=== PATIENT | female | born 1940 | race Caucasian/White ===

== ENCOUNTER 2017-09-22 15:39 | Inpatient (IN) | payer MEDICARE, OTHER ==
[2017-09-22] MEDS: SOD CHLORIDE 0.9% 1,000 ML IV (18:25)
[2017-09-22] MEDS ORDERED: GLUCOSE GEL 15 GRAM TUBE PO ×2 (18:30)
[2017-09-22] MEDS ORDERED: DEXTROSE 50% 50 ML SYRINGE IV (18:30)
[2017-09-22] MEDS ORDERED: GLUCAGON 1 MG INJ IM (18:30)
[2017-09-22] MEDS ORDERED: GLUCOSE GEL 15 GRAM TUBE BUCCAL (18:30)
[2017-09-22] MEDS: ACETAMINOPHEN 500 MG TAB PO (18:39)
[2017-09-22] MEDS: CEFAZOLIN 1 GM/50 ML (PMX) 50 ML IVPB ×2 (18:39→21:23)
[2017-09-22] MEDS: INSULIN ASPART [NOVOLOG] 3 ML PEN SC ×2 (18:45→21:00)
[2017-09-22] MEDS: METOPROLOL 50 MG TAB PO (21:00)
[2017-09-22] MEDS: ATORVASTATIN 40 MG TAB PO (21:23)
[2017-09-22] MEDS: TIMOLOL 0.25% 5 ML OPH BOTH EYES (21:23)
[2017-09-22] MEDS: IBUPROFEN 600 MG TAB PO (21:23)
[2017-09-22] MEDS ORDERED: IBUPROFEN LIQUID (PED) 20 MG/ML CUP PO (22:00)
[2017-09-23] MEDS: ACCU-CHEK XX (01:04)
[2017-09-23] MEDS: CEFAZOLIN 1 GM/50 ML (PMX) 50 ML IVPB ×3 (05:11→21:45)
[2017-09-23] MEDS: IBUPROFEN 600 MG TAB PO ×3 (05:12→21:46)
[2017-09-23 05:49] LABS: ADD MAN DIFF? NO
[2017-09-23 05:56] LABS: BASOPHILS % 0.6 % (0.0-2.0); HEMATOCRIT 31.1 % (37.0-47.0); HEMOGLOBIN 10.5 g/dl (12.0-16.0); LYMPHOCYTES # 2.6 10^3/ul (0.8-2.9); LYMPHOCYTES % 35.5 % (15.0-51.0); MEAN CORPUSCULAR HEMOGLOBIN 26.6 pg (29.0-33.0); MEAN CORPUSCULAR HGB CONC 33.8 g/dl (32.0-37.0); MEAN CORPUSCULAR VOLUME 78.9 fl (82.0-101.0); MEAN PLATELET VOLUME 9.8 fl (7.4-10.4); MONOCYTE # 0.6 10^3/ul (0.3-0.9); MONOCYTES % 7.7 % (0.0-11.0); NEUTROPHIL # 4.1 10^3/ul (1.6-7.5); NEUTROPHILS % 55.9 % (39.0-77.0); PLATELET COUNT 379 10^3/UL (140-415); RED BLOOD COUNT 3.94 10^6/ul (4.20-5.40); RED CELL DISTRIBUTION WIDTH 16.9 % (11.5-14.5)
[2017-09-23 05:56] LABS: WHITE BLOOD COUNT 7.3 10^3/ul (4.8-10.8)
[2017-09-23 06:21] LABS: PHOSPHORUS 3.8 mg/dl (2.5-4.9)
[2017-09-23 06:21] LABS: MAGNESIUM 1.6 mg/dl (1.7-2.5)
[2017-09-23 06:33] LABS: ANION GAP 15 (8-16); BLOOD UREA NITROGEN 8 mg/dl (7-20); CALCIUM 8.9 mg/dl (8.4-10.2); CARBON DIOXIDE 27 mmol/L (21-31); CHLORIDE 103 mmol/L (97-110); CREATININE 0.67 mg/dl (0.44-1.00); GLUCOSE 178 mg/dl (70-220); POTASSIUM 3.6 mmol/L (3.5-5.1); SODIUM 141 mmol/L (135-144)
[2017-09-23 06:39] LABS: C-REACTIVE PROTEIN < 0.5 mg/dl (0.0-0.9)
[2017-09-23 06:46] LABS: HEMOGLOBIN A1C 7.5 % (0-5.9)
[2017-09-23 06:59] LABS: ERYTHROCYTE SEDIMENTATION RATE 30 mm/Hr (0-30)
[2017-09-23] MEDS: TIMOLOL 0.25% 5 ML OPH BOTH EYES ×2 (08:12→21:44)
[2017-09-23] MEDS: BENAZEPRIL 40 MG TAB PO (08:13)
[2017-09-23] MEDS: AMLODIPINE 10 MG TAB PO (08:14)
[2017-09-23] MEDS: METOPROLOL 50 MG TAB PO ×2 (08:14→21:45)
[2017-09-23] MEDS: HYDROCHLOROTHIAZIDE 12.5 MG CAP PO (08:14)
[2017-09-23] MEDS: SOD CHLORIDE 0.9% 1,000 ML IV ×2 (08:14→21:46)
[2017-09-23] MEDS: INSULIN ASPART [NOVOLOG] 3 ML PEN SC ×4 (08:18→21:50)
[2017-09-23] MEDS: MAGNESIUM SULFATE 2 GM/50 ML 50 ML IVPB (12:34)
[2017-09-23] MEDS: ATORVASTATIN 40 MG TAB PO (21:44)
[2017-09-23] MEDS: ZOLPIDEM 5 MG TAB PO (21:45)
[2017-09-23] MEDS: INSULIN ASP PROT/ASPART (70/30) PEN SC (21:49)
[2017-09-24] MEDS: ACCU-CHEK XX (01:20)
[2017-09-24] MEDS: ACETAMINOPHEN 500 MG TAB PO (01:23)
[2017-09-24] MEDS: CEFAZOLIN 1 GM/50 ML (PMX) 50 ML IVPB (05:03)
[2017-09-24] MEDS: IBUPROFEN 600 MG TAB PO ×3 (05:03→21:11)
[2017-09-24] MEDS: AMLODIPINE 10 MG TAB PO (08:29)
[2017-09-24] MEDS: METOPROLOL 50 MG TAB PO ×2 (08:30→21:12)
[2017-09-24] MEDS: BENAZEPRIL 40 MG TAB PO (08:30)
[2017-09-24] MEDS: TIMOLOL 0.25% 5 ML OPH BOTH EYES ×2 (08:31→21:12)
[2017-09-24] MEDS: HYDROCHLOROTHIAZIDE 12.5 MG CAP PO (08:31)
[2017-09-24] MEDS: INSULIN ASP PROT/ASPART (70/30) PEN SC ×2 (08:33→21:16)
[2017-09-24] MEDS: INSULIN ASPART [NOVOLOG] 3 ML PEN SC ×4 (08:34→21:16)
[2017-09-24] MEDS: SOD CHLORIDE 0.9% 1,000 ML IV ×2 (12:24→23:59)
[2017-09-24] MEDS ORDERED: VANCOMYCIN IV PER PHARMACY XX (14:00)
[2017-09-24] MEDS: VANCOMYCIN 1.25 GM in SOD CHLORIDE 0.9% 250 ML IVPB (15:36)
[2017-09-24] MEDS: ATORVASTATIN 40 MG TAB PO (21:11)
[2017-09-25] MEDS: ACCU-CHEK XX (01:47)
[2017-09-25] MEDS: ACETAMINOPHEN 500 MG TAB PO ×2 (01:50→08:25)
[2017-09-25] MEDS: VANCOMYCIN 750 MG in DEXTROSE 5% 150 ML IVPB ×2 (03:50→15:48)
[2017-09-25] MEDS: IBUPROFEN 600 MG TAB PO ×3 (06:05→21:48)
[2017-09-25 06:28] LABS: ADD MAN DIFF? NO
[2017-09-25 06:37] LABS: WHITE BLOOD COUNT 8.6 10^3/ul (4.8-10.8)
[2017-09-25 06:37] LABS: BASOPHIL # 0.1 10^3/ul (0.0-0.1); BASOPHILS % 0.6 % (0.0-2.0); HEMATOCRIT 31.2 % (37.0-47.0); HEMOGLOBIN 10.3 g/dl (12.0-16.0); LYMPHOCYTES % 34.5 % (15.0-51.0); MEAN CORPUSCULAR HEMOGLOBIN 26.3 pg (29.0-33.0); MEAN CORPUSCULAR VOLUME 79.6 fl (82.0-101.0); MEAN PLATELET VOLUME 9.8 fl (7.4-10.4); MONOCYTE # 0.7 10^3/ul (0.3-0.9); MONOCYTES % 8.5 % (0.0-11.0); NEUTROPHIL # 4.8 10^3/ul (1.6-7.5); NEUTROPHILS % 56.2 % (39.0-77.0); PLATELET COUNT 363 10^3/UL (140-415); RED BLOOD COUNT 3.92 10^6/ul (4.20-5.40); RED CELL DISTRIBUTION WIDTH 16.9 % (11.5-14.5)
[2017-09-25 07:33] LABS: BLOOD UREA NITROGEN 14 mg/dl (7-20)
[2017-09-25] MEDS: TIMOLOL 0.25% 5 ML OPH BOTH EYES ×2 (08:25→20:38)
[2017-09-25] MEDS: AMLODIPINE 10 MG TAB PO (08:26)
[2017-09-25] MEDS: BENAZEPRIL 40 MG TAB PO (08:26)
[2017-09-25] MEDS: HYDROCHLOROTHIAZIDE 12.5 MG CAP PO (08:26)
[2017-09-25] MEDS: METOPROLOL 50 MG TAB PO ×2 (08:27→20:40)
[2017-09-25] MEDS: INSULIN ASP PROT/ASPART (70/30) PEN SC ×2 (08:32→20:43)
[2017-09-25] MEDS: INSULIN ASPART [NOVOLOG] 3 ML PEN SC ×4 (08:33→20:45)
[2017-09-25] MEDS ORDERED: MIDAZOLAM 1 MG/ML 2 ML INJ (13:24)
[2017-09-25] MEDS ORDERED: LIDOCAINE 1% (MDV) 20 ML INJ (13:24)
[2017-09-25] MEDS ORDERED: FENTAnyl 50 MCG/ML VIAL (13:24)
[2017-09-25] MEDS: LACTATED RINGER'S 1,000 ML IV ×3 (15:00→18:42)
[2017-09-25] MEDS: CLOPIDOGREL 75 MG TAB PO (15:47)
[2017-09-25] MEDS: HYDROCODONE/APAP (5/325) TAB PO (15:48)
[2017-09-25] MEDS: SOD CHLORIDE 0.9% 1,000 ML IV ×2 (17:29→21:55)
[2017-09-25] MEDS: ATORVASTATIN 40 MG TAB PO (20:40)
[2017-09-25] MEDS: ZOLPIDEM 5 MG TAB PO (23:47)
[2017-09-26] MEDS: ACCU-CHEK XX (01:40)
[2017-09-26] MEDS: DEXTROSE 50% 50 ML SYRINGE IV (01:50)
[2017-09-26 02:21] LABS: GLUCOSE 39 mg/dl (70-220)
[2017-09-26 02:27] LABS: VANCOMYCIN,TROUGH 11.8 ug/ml (10.0-20.0)
[2017-09-26] MEDS: VANCOMYCIN 750 MG in DEXTROSE 5% 150 ML IVPB ×2 (03:21→14:30)
[2017-09-26] MEDS: IBUPROFEN 600 MG TAB PO ×2 (05:43→14:25)
[2017-09-26 06:16] LABS: ADD MAN DIFF? NO
[2017-09-26 06:34] LABS: WHITE BLOOD COUNT 9.9 10^3/ul (4.8-10.8)
[2017-09-26 06:34] LABS: BASOPHILS % 0.3 % (0.0-2.0); HEMATOCRIT 32.7 % (37.0-47.0); HEMOGLOBIN 10.7 g/dl (12.0-16.0); LYMPHOCYTES # 1.6 10^3/ul (0.8-2.9); LYMPHOCYTES % 16.3 % (15.0-51.0); MEAN CORPUSCULAR HEMOGLOBIN 26.6 pg (29.0-33.0); MEAN CORPUSCULAR HGB CONC 32.7 g/dl (32.0-37.0); MEAN CORPUSCULAR VOLUME 81.3 fl (82.0-101.0); MEAN PLATELET VOLUME 9.5 fl (7.4-10.4); MONOCYTE # 0.6 10^3/ul (0.3-0.9); MONOCYTES % 5.7 % (0.0-11.0); NEUTROPHIL # 7.7 10^3/ul (1.6-7.5); NEUTROPHILS % 77.4 % (39.0-77.0); PLATELET COUNT 371 10^3/UL (140-415); RED BLOOD COUNT 4.02 10^6/ul (4.20-5.40); RED CELL DISTRIBUTION WIDTH 16.9 % (11.5-14.5)
[2017-09-26 06:46] LABS: ANION GAP 11 (8-16); BLOOD UREA NITROGEN 12 mg/dl (7-20); CALCIUM 9.2 mg/dl (8.4-10.2); CARBON DIOXIDE 29 mmol/L (21-31); CHLORIDE 106 mmol/L (97-110); CREATININE 0.65 mg/dl (0.44-1.00); GLUCOSE 111 mg/dl (70-220); POTASSIUM 3.3 mmol/L (3.5-5.1); SODIUM 143 mmol/L (135-144)
[2017-09-26] MEDS: SOD CHLORIDE 0.9% 1,000 ML IV ×2 (07:18→12:06)
[2017-09-26] MEDS: TIMOLOL 0.25% 5 ML OPH BOTH EYES (08:05)
[2017-09-26] MEDS: BENAZEPRIL 40 MG TAB PO (08:06)
[2017-09-26] MEDS: AMLODIPINE 10 MG TAB PO (08:06)
[2017-09-26] MEDS: HYDROCHLOROTHIAZIDE 12.5 MG CAP PO (08:07)
[2017-09-26] MEDS: METOPROLOL 50 MG TAB PO (08:07)
[2017-09-26] MEDS: CLOPIDOGREL 75 MG TAB PO (08:07)
[2017-09-26] MEDS: INSULIN ASPART [NOVOLOG] 3 ML PEN SC ×2 (08:07→12:07)
[2017-09-26] MEDS: INSULIN ASP PROT/ASPART (70/30) PEN SC (08:10)
[2017-09-26] MEDS: POTASSIUM CHLORIDE (SR) 10 MEQ TAB PO (16:14)
== END 2017-09-26 17:05 | disposition home or self-care (01) | DRG 253 ==
LOC: MS2 15:39
PROVIDERS: Internal Medicine Nephrology
PROC: 047L3ZZ Dilation of Left Femoral Artery, Percutaneous Approach (ICD-10-PCS; principal; 2017-09-25 13:30)
PROC: B41DYZZ Fluoroscopy of Aorta and Bilateral Lower Extremity Arteries using Other Contrast (ICD-10-PCS; 2017-09-25 13:30)
DX: E11.52 Type 2 diabetes mellitus with diabetic peripheral angiopathy with gangrene (principal); L03.116 Cellulitis of left lower limb; I70.262 Atherosclerosis of native arteries of extremities with gangrene, left leg; L97.229 Non-pressure chronic ulcer of left calf with unspecified severity; E11.42 Type 2 diabetes mellitus with diabetic polyneuropathy; I10 Essential (primary) hypertension; E78.5 Hyperlipidemia, unspecified; H40.9 Unspecified glaucoma; Z79.4 Long term (current) use of insulin; Z79.84 Long term (current) use of oral hypoglycemic drugs; Z79.02 Long term (current) use of antithrombotics/antiplatelets
CPT/HCPCS: 37224; 73721; 75710; 80048; 80202; 82565; 82947; 82962; 83036; 83735; 84100; 84520; 85025; 85651; 86140; 87081; 93922

== ENCOUNTER 2018-02-01 03:07 | Inpatient (IN) | payer MEDICARE, OTHER ==
[2018-02-01] MEDS: ONDANSETRON 4 MG INJ IV ×4 (04:07→17:40)
[2018-02-01 04:08] LABS: ADD MAN DIFF? NO
[2018-02-01] MEDS: SOD CHLORIDE 0.9% 500 ML IV (04:08)
[2018-02-01 04:09] LABS: WHITE BLOOD COUNT 11.1 10^3/ul (4.8-10.8)
[2018-02-01 04:09] LABS: BASOPHIL # 0.1 10^3/ul (0.0-0.1); BASOPHILS % 0.5 % (0.0-2.0); HEMATOCRIT 32.5 % (37.0-47.0); HEMOGLOBIN 10.6 g/dl (12.0-16.0); LYMPHOCYTES # 1.7 10^3/ul (0.8-2.9); LYMPHOCYTES % 15.7 % (15.0-51.0); MEAN CORPUSCULAR HEMOGLOBIN 26.4 pg (29.0-33.0); MEAN CORPUSCULAR HGB CONC 32.6 g/dl (32.0-37.0); MEAN CORPUSCULAR VOLUME 80.8 fl (82.0-101.0); MEAN PLATELET VOLUME 9.5 fl (7.4-10.4); MONOCYTE # 0.6 10^3/ul (0.3-0.9); MONOCYTES % 5.3 % (0.0-11.0); NEUTROPHIL # 8.7 10^3/ul (1.6-7.5); NEUTROPHILS % 78.2 % (39.0-77.0); PLATELET COUNT 367 10^3/UL (140-415); RED BLOOD COUNT 4.02 10^6/ul (4.20-5.40); RED CELL DISTRIBUTION WIDTH 15.9 % (11.5-14.5)
[2018-02-01 04:28] LABS: ALANINE AMINOTRANSFERASE 12 IU/L (13-69); ALBUMIN 4.4 g/dl (3.3-4.9); ALBUMIN/GLOBULIN RATIO 1.46; ALKALINE PHOSPHATASE 102 IU/L (42-121); ANION GAP 20 (8-16); ASPARTATE AMINO TRANSFERASE 23 IU/L (15-46); BILIRUBIN,INDIRECT 0.3 mg/dl (0-1.1); BILIRUBIN,TOTAL 0.3 mg/dl (0.2-1.3); BLOOD UREA NITROGEN 21 mg/dl (7-20); CARBON DIOXIDE 24 mmol/L (21-31); CHLORIDE 100 mmol/L (97-110); CREATININE 0.96 mg/dl (0.44-1.00); GLUCOSE 349 mg/dl (70-220); POTASSIUM 3.8 mmol/L (3.5-5.1); SODIUM 140 mmol/L (135-144); TOTAL PROTEIN 7.4 g/dl (6.1-8.1)
[2018-02-01 04:39] LABS: B-TYPE NATRIURETIC PEPTIDE 237 PG/ML (0-450); TROPONIN-I < 0.012 ng/ml (0.000-0.120)
[2018-02-01 08:03] LABS: ADD UMIC YES; UR ASCORBIC ACID NEGATIVE (NEGATIVE); UR BACTERIA FEW /HPF (NONE SEEN); UR BILIRUBIN (Dip) NEGATIVE (NEGATIVE); UR BLOOD (Dip) NEGATIVE (NEGATIVE); UR CLARITY SLIGHTLY CLOUDY (CLEAR); UR COLOR YELLOW (YELLOW); UR GLUCOSE (Dip) 3+ mg/dL (NEGATIVE); UR KETONES (Dip) 1+ mg/dL (NEGATIVE); UR LEUKOCYTE ESTERASE (Dip) TRACE Leu/ul (NEGATIVE); UR NITRITE (Dip) NEGATIVE (NEGATIVE); UR NONSQUAMOUS EPITHELIAL CELL 1 /HPF (NONE SEEN); UR RBC 3 /HPF (0-5); UR SPECIFIC GRAVITY (Dip) 1.018 (1.003-1.030); UR TOTAL PROTEIN (Dip) NEGATIVE (NEGATIVE); UR UROBILINOGEN (Dip) NEGATIVE (NEGATIVE); UR WBC 12 /HPF (0-5)
[2018-02-01] MEDS: DEXTROSE 5%-0.45% NACL 1,000 ML IV (09:19)
[2018-02-01] MEDS ORDERED: GLUCAGON 1 MG INJ IM (09:30)
[2018-02-01] MEDS ORDERED: GLUCOSE GEL 15 GRAM TUBE BUCCAL (09:30)
[2018-02-01] MEDS ORDERED: DEXTROSE 50% 50 ML SYRINGE IV ×2 (09:30)
[2018-02-01] MEDS ORDERED: GLUCOSE GEL 15 GRAM TUBE PO ×2 (09:30)
[2018-02-01] MEDS: INSULIN ASPART [NOVOLOG] 3 ML PEN SC ×4 (09:44→19:38)
[2018-02-01 10:14] LABS: LIPASE 92 U/L (23-300)
[2018-02-01] MEDS ORDERED: [UNRECOGNIZED DRUG - REMARK] XX (11:30)
[2018-02-01] MEDS ORDERED: FUROSEMIDE 40 MG INJ (18:24)
[2018-02-01] MEDS: FUROSEMIDE 40 MG INJ IV ×2 (18:26→18:29)
[2018-02-01 18:27] LABS: AADO2 Arterial 632.5 mmHg (7.0-24.0); Allen Test ACCEPTAB; Arterial Base Excess -4.4 mmol/L (-3.0-3); Arterial Blood Gas Oxygen Sat 85.5 mmHG (95.0-100.0); Arterial COHb 0.8 % (0.0-3.0); Arterial Fraction of Oxyhgb 84.6 % (93.0-99.0); Arterial HCO3 18.8 mmol/L (22.0-26.0); Arterial MetHb 0.3 % (0.0-1.5); Arterial Total Hemglobin 11.3 g/dl (12.0-18.0); Arterial pCO2 28.7 mmhg (35-45); MODE MASK - NRB; Site Right Radial
[2018-02-01] MEDS: ALBUTEROL/IPRATROPIUM (NEB) 3 ML AMP HHN (18:27)
[2018-02-01 19:01] LABS: ADD MAN DIFF? NO
[2018-02-01 19:03] LABS: BASOPHILS % 0.2 % (0.0-2.0); HEMATOCRIT 33.8 % (37.0-47.0); HEMOGLOBIN 10.8 g/dl (12.0-16.0); LYMPHOCYTES # 1.2 10^3/ul (0.8-2.9); LYMPHOCYTES % 8.2 % (15.0-51.0); MEAN CORPUSCULAR HEMOGLOBIN 26.5 pg (29.0-33.0); MEAN PLATELET VOLUME 9.9 fl (7.4-10.4); MONOCYTE # 0.7 10^3/ul (0.3-0.9); MONOCYTES % 4.9 % (0.0-11.0); NEUTROPHIL # 12.6 10^3/ul (1.6-7.5); NEUTROPHILS % 86.2 % (39.0-77.0); PLATELET COUNT 393 10^3/UL (140-415); RED BLOOD COUNT 4.07 10^6/ul (4.20-5.40)
[2018-02-01 19:03] LABS: WHITE BLOOD COUNT 14.6 10^3/ul (4.8-10.8)
[2018-02-01 19:39] LABS: LACTIC ACID 5.9 mmol/L (0.5-2.0)
[2018-02-01 19:49] LABS: ALANINE AMINOTRANSFERASE 20 IU/L (13-69); ALBUMIN 3.9 g/dl (3.3-4.9); ALBUMIN/GLOBULIN RATIO 1.25; ALKALINE PHOSPHATASE 86 IU/L (42-121); ANION GAP 21 (8-16); ASPARTATE AMINO TRANSFERASE 119 IU/L (15-46); BILIRUBIN,INDIRECT 0.3 mg/dl (0-1.1); BILIRUBIN,TOTAL 0.3 mg/dl (0.2-1.3); BLOOD UREA NITROGEN 23 mg/dl (7-20); CALCIUM 9.5 mg/dl (8.4-10.2); CARBON DIOXIDE 22 mmol/L (21-31); CHLORIDE 101 mmol/L (97-110); GLUCOSE 388 mg/dl (70-220); POTASSIUM 3.5 mmol/L (3.5-5.1); SODIUM 140 mmol/L (135-144)
[2018-02-01 20:01] LABS: B-TYPE NATRIURETIC PEPTIDE 7350 PG/ML (0-450)
[2018-02-01] MEDS: ALBUTEROL 0.083% (NEB) 2.5 MG/3 ML AMP HHN (20:30)
[2018-02-01] MEDS: IPRATROPIUM (NEB) 0.5 MG/2.5 ML AMP HHN (20:30)
[2018-02-01] MEDS: SOD CHLORIDE 0.45% 1,000 ML IV (20:47)
[2018-02-01] MEDS: LEVOFLOXACIN 500MG/D5W (PMX) 100 ML IVPB (20:47)
[2018-02-01] MEDS: ENOXAPARIN 40 MG/0.4 ML SYG SC ×2 (20:49→23:30)
[2018-02-01] MEDS: METOCLOPRAMIDE 5 MG TAB PO (21:00)
[2018-02-01] MEDS ORDERED: ALBUTEROL/IPRATROPIUM (NEB) 3 ML AMP HHN (21:00)
[2018-02-01] MEDS ORDERED: NITROGLYCERIN (SL) 0.4 MG TAB (21:51)
[2018-02-01] MEDS: NITROGLYCERIN (SL) 0.4 MG TAB SL ×3 (21:53→22:37)
[2018-02-01] MEDS ORDERED: FUROSEMIDE 40 MG INJ IV (22:00)
[2018-02-01] MEDS ORDERED: morphine 2 MG INJ (22:18)
[2018-02-01] MEDS ORDERED: morphine 2 MG INJ IV (22:30)
[2018-02-01] MEDS: morphine 2 MG INJ IV (23:26)
[2018-02-01 23:35] LABS: AADO2 Arterial 633.5 mmHg (7.0-24.0); Allen Test ACCEPTAB; Arterial Base Excess -4.3 mmol/L (-3.0-3); Arterial Blood Gas Oxygen Sat 85.9 mmHG (95.0-100.0); Arterial COHb 0.3 % (0.0-3.0); Arterial Fraction of Oxyhgb 85.4 % (93.0-99.0); Arterial HCO3 18.5 mmol/L (22.0-26.0); Arterial MetHb 0.3 % (0.0-1.5); Arterial Total Hemglobin 10.7 g/dl (12.0-18.0); Arterial pCO2 27.3 mmhg (35-45); MODE HFNC; Site Right Radial
[2018-02-02] MEDS: ASPIRIN 81 MG TAB PO ×2 (00:28→09:10)
[2018-02-02] MEDS: ALBUTEROL 0.083% (NEB) 2.5 MG/3 ML AMP HHN (02:36)
[2018-02-02] MEDS: IPRATROPIUM (NEB) 0.5 MG/2.5 ML AMP HHN (02:36)
[2018-02-02] MEDS: ACCU-CHEK XX ×16 (02:37→23:17)
[2018-02-02 05:26] LABS: ADD MAN DIFF? NO
[2018-02-02 05:34] LABS: BASOPHILS % 0.1 % (0.0-2.0); HEMATOCRIT 34.2 % (37.0-47.0); HEMOGLOBIN 11.2 g/dl (12.0-16.0); LYMPHOCYTES # 1.1 10^3/ul (0.8-2.9); LYMPHOCYTES % 6.9 % (15.0-51.0); MEAN CORPUSCULAR HEMOGLOBIN 26.6 pg (29.0-33.0); MEAN CORPUSCULAR HGB CONC 32.7 g/dl (32.0-37.0); MEAN CORPUSCULAR VOLUME 81.2 fl (82.0-101.0); MEAN PLATELET VOLUME 10.1 fl (7.4-10.4); MONOCYTES % 6.2 % (0.0-11.0); NEUTROPHIL # 13.9 10^3/ul (1.6-7.5); NEUTROPHILS % 86.4 % (39.0-77.0); PLATELET COUNT 434 10^3/UL (140-415); RED BLOOD COUNT 4.21 10^6/ul (4.20-5.40); RED CELL DISTRIBUTION WIDTH 16.1 % (11.5-14.5)
[2018-02-02 05:34] LABS: WHITE BLOOD COUNT 16.2 10^3/ul (4.8-10.8)
[2018-02-02] MEDS: PANTOPRAZOLE 40 MG INJ IV (05:47)
[2018-02-02 05:48] LABS: ALANINE AMINOTRANSFERASE 35 IU/L (13-69); ALBUMIN 3.7 g/dl (3.3-4.9); ALBUMIN/GLOBULIN RATIO 1.42; ALKALINE PHOSPHATASE 86 IU/L (42-121); ANION GAP 19 (8-16); ASPARTATE AMINO TRANSFERASE 240 IU/L (15-46); BILIRUBIN,INDIRECT 0.4 mg/dl (0-1.1); BILIRUBIN,TOTAL 0.4 mg/dl (0.2-1.3); BLOOD UREA NITROGEN 28 mg/dl (7-20); CALCIUM 9.1 mg/dl (8.4-10.2); CARBON DIOXIDE 22 mmol/L (21-31); CHLORIDE 101 mmol/L (97-110); CREATINE KINASE 1546 IU/L (23-200); CREATININE 1.07 mg/dl (0.44-1.00); POTASSIUM 3.5 mmol/L (3.5-5.1); SODIUM 138 mmol/L (135-144); TOTAL PROTEIN 6.3 g/dl (6.1-8.1)
[2018-02-02 05:54] LABS: CK INDEX 11.1
[2018-02-02 06:22] LABS: GLUCOSE 443 mg/dl (70-220)
[2018-02-02 06:24] LABS: LACTIC ACID 3.1 mmol/L (0.5-2.0)
[2018-02-02] MEDS ORDERED: DEXTROSE 50% 50 ML SYRINGE IV ×2 (07:00)
[2018-02-02 07:05] LABS: LIPASE 56 U/L (23-300)
[2018-02-02 07:08] LABS: AMYLASE < 30 U/L (11-123)
[2018-02-02] MEDS ORDERED: INSULIN ASPART [NOVOLOG] 3 ML PEN SC (07:35)
[2018-02-02 07:37] LABS: CARCINOEMBRYONIC ANTIGEN 1.9 ng/ml (0.0-5.0)
[2018-02-02 07:41] LABS: CANCER ANTIGEN 19-9 19.7 U/ml (0.0-37.0)
[2018-02-02] MEDS ORDERED: ASPIRIN 81 MG TAB PO (09:00)
[2018-02-02] MEDS: METHYLPREDNISOLONE 125 MG INJ IV ×3 (09:09→17:06)
[2018-02-02] MEDS: FUROSEMIDE 40 MG INJ IV ×2 (09:09→14:45)
[2018-02-02] MEDS: METOCLOPRAMIDE 5 MG TAB PO ×3 (09:09→20:47)
[2018-02-02] MEDS: INSULIN HUMAN REGULAR 100 UNIT in SOD CHLORIDE 0.9% 99 ML IV ×2 (09:23→21:51)
[2018-02-02] MEDS ORDERED: HEPARIN 1000 UNITS/ML 10 ML INJ IV (11:30)
[2018-02-02 12:24] LABS: HEMATOCRIT 36.1 % (37.0-47.0); HEMOGLOBIN 11.9 g/dl (12.0-16.0); MEAN CORPUSCULAR HEMOGLOBIN 26.5 pg (29.0-33.0); MEAN CORPUSCULAR VOLUME 80.4 fl (82.0-101.0); MEAN PLATELET VOLUME 9.8 fl (7.4-10.4); PLATELET COUNT 415 10^3/UL (140-415); RED BLOOD COUNT 4.49 10^6/ul (4.20-5.40)
[2018-02-02 12:24] LABS: WHITE BLOOD COUNT 16.9 10^3/ul (4.8-10.8)
[2018-02-02 12:25] LABS: ADD MAN DIFF? YES
[2018-02-02 12:47] LABS: INR 1.03; PROTIME 13.6 Sec (11.9-14.9); PT RATIO 1.1
[2018-02-02 12:48] LABS: PARTIAL THROMBOPLASTIN TIME 26.9 Sec (25.0-35.0)
[2018-02-02 13:05] LABS: AADO2 Arterial 634.3 mmHg (7.0-24.0); Allen Test ACCEPTAB; Arterial Base Excess -2.6 mmol/L (-3.0-3); Arterial Blood Gas Oxygen Sat 84.1 mmHG (95.0-100.0); Arterial COHb 0.9 % (0.0-3.0); Arterial Fraction of Oxyhgb 83.1 % (93.0-99.0); Arterial HCO3 20.2 mmol/L (22.0-26.0); Arterial MetHb 0.3 % (0.0-1.5); Arterial Total Hemglobin 12.1 g/dl (12.0-18.0); Arterial pCO2 29.2 mmhg (35-45); MODE MASK - NRB; Site Right Radial
[2018-02-02] MEDS ORDERED: HEPARIN 25000 UNITS/250 ML 250 ML (13:25)
[2018-02-02] MEDS ORDERED: HEPARIN 1000 UNITS/ML 10 ML INJ (13:25)
[2018-02-02] MEDS: HEPARIN 1000 UNITS/ML 10 ML INJ IV (13:34)
[2018-02-02] MEDS: HEPARIN 25000 UNITS/250 ML 250 ML IV (13:38)
[2018-02-02 16:19] LABS: CREATINE KINASE 1297 IU/L (23-200)
[2018-02-02 16:32] LABS: CK INDEX 6.9
[2018-02-02] MEDS: LEVOFLOXACIN 500MG/D5W (PMX) 100 ML IVPB (18:10)
[2018-02-02 20:39] LABS: PARTIAL THROMBOPLASTIN TIME 111.1 Sec (25.0-35.0)
[2018-02-02] MEDS: ATORVASTATIN 20 MG TAB PO (20:47)
[2018-02-02] MEDS: COLLAGENASE 5 GM (UD JAR) TOP (20:48)
[2018-02-03] MEDS: ACCU-CHEK XX ×25 (00:35→23:58)
[2018-02-03] MEDS: METHYLPREDNISOLONE 125 MG INJ IV ×5 (00:53→23:39)
[2018-02-03 03:39] LABS: ADD MAN DIFF? NO
[2018-02-03 04:07] LABS: ABNORMAL IP MESSAGE 1; BASOPHILS % 0.1 % (0.0-2.0); HEMATOCRIT 31.5 % (37.0-47.0); HEMOGLOBIN 10.7 g/dl (12.0-16.0); LYMPHOCYTES # 1.1 10^3/ul (0.8-2.9); LYMPHOCYTES % 4.9 % (15.0-51.0); MEAN CORPUSCULAR HEMOGLOBIN 27.1 pg (29.0-33.0); MEAN CORPUSCULAR VOLUME 79.7 fl (82.0-101.0); MEAN PLATELET VOLUME 10.5 fl (7.4-10.4); MONOCYTES % 4.5 % (0.0-11.0); NEUTROPHIL # 20.3 10^3/ul (1.6-7.5); NEUTROPHILS % 89.7 % (39.0-77.0); PLATELET COUNT 360 10^3/UL (140-415); RED BLOOD COUNT 3.95 10^6/ul (4.20-5.40); RED CELL DISTRIBUTION WIDTH 16.3 % (11.5-14.5)
[2018-02-03 04:07] LABS: WHITE BLOOD COUNT 22.6 10^3/ul (4.8-10.8)
[2018-02-03 04:08] LABS: CREATINE KINASE 844 IU/L (23-200)
[2018-02-03 04:09] LABS: MAGNESIUM 1.5 mg/dl (1.7-2.5)
[2018-02-03 04:09] LABS: PHOSPHORUS 2.9 mg/dl (2.5-4.9)
[2018-02-03 04:12] LABS: PARTIAL THROMBOPLASTIN TIME 61.5 Sec (25.0-35.0)
[2018-02-03 04:16] LABS: ANION GAP 16 (8-16); BLOOD UREA NITROGEN 32 mg/dl (7-20); CALCIUM 8.8 mg/dl (8.4-10.2); CARBON DIOXIDE 26 mmol/L (21-31); CHLORIDE 104 mmol/L (97-110); CREATININE 0.97 mg/dl (0.44-1.00); GLUCOSE 133 mg/dl (70-220); SODIUM 143 mmol/L (135-144)
[2018-02-03 04:20] LABS: POSITIVE DIFF @See below
[2018-02-03 04:21] LABS: CK INDEX 3.6
[2018-02-03 04:22] LABS: POTASSIUM 2.9 mmol/L (3.5-5.1)
[2018-02-03] MEDS: POTASSIUM CHLORIDE 50 ML IVPB ×6 (05:41→14:54)
[2018-02-03] MEDS: PANTOPRAZOLE 40 MG INJ IV (05:41)
[2018-02-03] MEDS: MAGNESIUM SULFATE 4 GM/100 ML 100 ML IVPB (06:03)
[2018-02-03] MEDS ORDERED: SUCCINYLCHOLINE CHLORIDE 100 MG/5 ML SYG IV (07:00)
[2018-02-03] MEDS ORDERED: NORepinephrine 8MG/250 ML BAG (07:00)
[2018-02-03] MEDS ORDERED: ETOMIDATE 20 MG INJ (07:00)
[2018-02-03] MEDS: morphine 2 MG INJ IV ×2 (08:37→12:45)
[2018-02-03] MEDS: COLLAGENASE 5 GM (UD JAR) TOP (09:34)
[2018-02-03] MEDS: ASPIRIN 81 MG TAB PO (10:42)
[2018-02-03] MEDS: LISINOPRIL 5 MG TAB PO (10:43)
[2018-02-03] MEDS: FUROSEMIDE 40 MG INJ IV ×2 (10:43→20:35)
[2018-02-03] MEDS: METOCLOPRAMIDE 5 MG TAB PO ×3 (10:43→21:08)
[2018-02-03 10:54] LABS: MAGNESIUM 3.4 mg/dl (1.7-2.5)
[2018-02-03 10:58] LABS: POTASSIUM 2.7 mmol/L (3.5-5.1)
[2018-02-03 11:05] LABS: PARTIAL THROMBOPLASTIN TIME 53.7 Sec (25.0-35.0)
[2018-02-03] MEDS: LIDOCAINE 1% (MPF) 5 ML VIAL SC (11:10)
[2018-02-03] MEDS: DEXTROSE 5%-0.45% NACL 1,000 ML IV (12:05)
[2018-02-03] MEDS: SUCCINYLCHOLINE CHLORIDE 100 MG/5 ML SYG IV (12:33)
[2018-02-03] MEDS: ETOMIDATE 20 MG INJ IV (12:33)
[2018-02-03] MEDS ORDERED: MIDAZOLAM (DRIP) 50 mg/50 mL 50 ML IV (12:38)
[2018-02-03] MEDS: NORepinephrine 8MG/250 ML (PMX 250 ML IV ×2 (12:47→23:04)
[2018-02-03] MEDS ORDERED: GLUCAGON 1 MG INJ IM (13:30)
[2018-02-03] MEDS ORDERED: DEXTROSE 50% 50 ML SYRINGE IV ×2 (13:30)
[2018-02-03] MEDS ORDERED: GLUCOSE GEL 15 GRAM TUBE BUCCAL (13:30)
[2018-02-03] MEDS ORDERED: GLUCOSE GEL 15 GRAM TUBE PO ×2 (13:30)
[2018-02-03] MEDS: INSULIN GLARGINE [LANTus] (100 UNITS/ML) SYG SC ×2 (13:42→20:32)
[2018-02-03] MEDS: MIDAZOLAM (DRIP) 50 mg/50 mL 50 ML IV ×2 (13:50→19:43)
[2018-02-03 14:01] LABS: Allen Test ACCEPTAB; Arterial Base Excess -0.9 mmol/L (-3.0-3); Arterial Blood Gas Oxygen Sat 99.5 mmHG (95.0-100.0); Arterial COHb 0.3 % (0.0-3.0); Arterial Fraction of Oxyhgb 98.9 % (93.0-99.0); Arterial HCO3 20.8 mmol/L (22.0-26.0); Arterial MetHb 0.3 % (0.0-1.5); Arterial Total Hemglobin 11.5 g/dl (12.0-18.0); Arterial pCO2 26.3 mmhg (35-45); MODE VENT - AC; Site Right Radial
[2018-02-03] MEDS: FENTAnyl (DRIP) 1000 mcg/100mL 100 ML IV (14:16)
[2018-02-03] MEDS: D5W-0.45 NACL + KCL 20 MEQ 1,000 ML IV (14:52)
[2018-02-03 15:31] LABS: PARTIAL THROMBOPLASTIN TIME 21.3 Sec (25.0-35.0)
[2018-02-03 16:52] LABS: ANION GAP 12 (8-16); BLOOD UREA NITROGEN 32 mg/dl (7-20); CALCIUM 8.6 mg/dl (8.4-10.2); CARBON DIOXIDE 24 mmol/L (21-31); CHLORIDE 108 mmol/L (97-110); CREATININE 1.03 mg/dl (0.44-1.00); GLUCOSE 155 mg/dl (70-220); MAGNESIUM 2.7 mg/dl (1.7-2.5); POTASSIUM 3.7 mmol/L (3.5-5.1); SODIUM 140 mmol/L (135-144)
[2018-02-03] MEDS: Insulin NOVOLOG SS MILD Algorithm (NPO/TPN/ENTERAL FEEDS) SC ×2 (17:00→21:00)
[2018-02-03] MEDS ORDERED: INSULIN ASPART [NOVOLOG] 3 ML PEN SC ×2 (17:00→17:35)
[2018-02-03] MEDS ORDERED: niCARdipine 25 MG INJ (18:02)
[2018-02-03] MEDS ORDERED: LIDOCAINE 1% (MDV) 20 ML INJ (18:02)
[2018-02-03] MEDS ORDERED: IODIXANOL LOCM 100 ML BTL ×2 (18:02→19:17)
[2018-02-03] MEDS ORDERED: BIVALIRUDIN 250MG /NS 50 ML 50 ML IVPB (18:02)
[2018-02-03] MEDS ORDERED: IOHEXOL 350MG/ML 50 ML BTL (18:02)
[2018-02-03] MEDS ORDERED: TICAGRELOR 90 MG TABLET (19:18)
[2018-02-03] MEDS ORDERED: ASPIRIN 325 MG TAB (19:18)
[2018-02-03] MEDS: LEVOFLOXACIN 500MG/D5W (PMX) 100 ML IVPB (20:25)
[2018-02-03] MEDS: SOD CHLORIDE 0.9% 1,000 ML IV (20:34)
[2018-02-03] MEDS: ATORVASTATIN 20 MG TAB PO (21:08)
[2018-02-03] MEDS: TICAGRELOR 90 MG TABLET PO (21:09)
[2018-02-03] MEDS: INSULIN ASPART [NOVOLOG] 3 ML PEN SC (21:12)
[2018-02-04 00:13] LABS: ANION GAP 23 (8-16); BLOOD UREA NITROGEN 33 mg/dl (7-20); CARBON DIOXIDE 15 mmol/L (21-31); CHLORIDE 104 mmol/L (97-110); CREATININE 1.19 mg/dl (0.44-1.00); MAGNESIUM 2.3 mg/dl (1.7-2.5); POTASSIUM 3.2 mmol/L (3.5-5.1); SODIUM 139 mmol/L (135-144)
[2018-02-04 00:19] LABS: GLUCOSE 430 mg/dl (70-220)
[2018-02-04] MEDS: POTASSIUM CHLORIDE 50 ML IVPB ×5 (00:23→08:00)
[2018-02-04] MEDS: Insulin NOVOLOG SS MILD Algorithm (NPO/TPN/ENTERAL FEEDS) SC (01:00)
[2018-02-04] MEDS: ACCU-CHEK XX ×31 (01:00→23:00)
[2018-02-04] MEDS ORDERED: DEXTROSE 50% 50 ML SYRINGE IV ×2 (01:30)
[2018-02-04] MEDS: INSULIN HUMAN REGULAR 100 UNIT in SOD CHLORIDE 0.9% 99 ML IV ×3 (02:54→05:18)
[2018-02-04 05:28] LABS: ADD MAN DIFF? NO
[2018-02-04 05:32] LABS: ABNORMAL IP MESSAGE 1; BASOPHILS % 0.1 % (0.0-2.0); HEMATOCRIT 27.6 % (37.0-47.0); HEMOGLOBIN 9.2 g/dl (12.0-16.0); LYMPHOCYTES # 0.5 10^3/ul (0.8-2.9); LYMPHOCYTES % 3.4 % (15.0-51.0); MEAN CORPUSCULAR HEMOGLOBIN 26.9 pg (29.0-33.0); MEAN CORPUSCULAR HGB CONC 33.3 g/dl (32.0-37.0); MEAN CORPUSCULAR VOLUME 80.7 fl (82.0-101.0); MEAN PLATELET VOLUME 10.3 fl (7.4-10.4); MONOCYTE # 1.3 10^3/ul (0.3-0.9); MONOCYTES % 8.2 % (0.0-11.0); NEUTROPHIL # 13.8 10^3/ul (1.6-7.5); NEUTROPHILS % 87.6 % (39.0-77.0); NUCLEATED RED BLOOD CELLS% 0.1 /100WBC (0.0-0.0); PLATELET COUNT 341 10^3/UL (140-415); RED BLOOD COUNT 3.42 10^6/ul (4.20-5.40); RED CELL DISTRIBUTION WIDTH 16.9 % (11.5-14.5)
[2018-02-04 05:32] LABS: WHITE BLOOD COUNT 15.7 10^3/ul (4.8-10.8)
[2018-02-04 05:51] LABS: POSITIVE DIFF @See below
[2018-02-04] MEDS: PANTOPRAZOLE 40 MG INJ IV (05:56)
[2018-02-04] MEDS: METHYLPREDNISOLONE 125 MG INJ IV ×3 (05:57→22:13)
[2018-02-04 06:15] LABS: ANION GAP 15 (8-16); BLOOD UREA NITROGEN 31 mg/dl (7-20); CARBON DIOXIDE 21 mmol/L (21-31); CHLORIDE 109 mmol/L (97-110); CREATININE 1.08 mg/dl (0.44-1.00); GLUCOSE 319 mg/dl (70-220); MAGNESIUM 2.2 mg/dl (1.7-2.5); PHOSPHORUS 1.4 mg/dl (2.5-4.9); POTASSIUM 3.6 mmol/L (3.5-5.1); SODIUM 141 mmol/L (135-144)
[2018-02-04 06:17] LABS: CK INDEX 3.9; CREATINE KINASE 273 IU/L (23-200)
[2018-02-04 07:29] LABS: AADO2 Arterial 83.4 mmHg (7.0-24.0); Allen Test ACCEPTAB; Arterial Base Excess -0.8 mmol/L (-3.0-3); Arterial Blood Gas Oxygen Sat 97.6 mmHG (95.0-100.0); Arterial COHb 0 % (0.0-3.0); Arterial Fraction of Oxyhgb 97.3 % (93.0-99.0); Arterial HCO3 20.4 mmol/L (22.0-26.0); Arterial MetHb 0.3 % (0.0-1.5); Arterial Total Hemglobin 10.1 g/dl (12.0-18.0); Arterial pCO2 23.5 mmhg (35-45); MODE VENT - AC; Site Right Radial
[2018-02-04] MEDS ORDERED: ASPIRIN (EC) 81 MG TAB PO (09:00)
[2018-02-04] MEDS: LISINOPRIL 5 MG TAB PO (09:00)
[2018-02-04] MEDS: ASPIRIN 81 MG TAB PO (09:36)
[2018-02-04] MEDS: COLLAGENASE 5 GM (UD JAR) TOP (09:36)
[2018-02-04] MEDS: METOCLOPRAMIDE 5 MG TAB PO ×3 (09:36→20:58)
[2018-02-04] MEDS: TICAGRELOR 90 MG TABLET PO ×2 (09:42→21:00)
[2018-02-04] MEDS: D5W-0.45 NACL + KCL 20 MEQ 1,000 ML IV (10:50)
[2018-02-04 11:38] LABS: ADD MAN DIFF? NO
[2018-02-04 11:41] LABS: ABNORMAL IP MESSAGE 1; BASOPHILS % 0.1 % (0.0-2.0); HEMOGLOBIN 8.9 g/dl (12.0-16.0); LYMPHOCYTES # 0.5 10^3/ul (0.8-2.9); LYMPHOCYTES % 3.5 % (15.0-51.0); MEAN CORPUSCULAR VOLUME 81.8 fl (82.0-101.0); MEAN PLATELET VOLUME 10.3 fl (7.4-10.4); MONOCYTE # 1.1 10^3/ul (0.3-0.9); MONOCYTES % 7.4 % (0.0-11.0); NEUTROPHILS % 88.5 % (39.0-77.0); NUCLEATED RED BLOOD CELLS% 0.2 /100WBC (0.0-0.0); PLATELET COUNT 295 10^3/UL (140-415); RED CELL DISTRIBUTION WIDTH 17.1 % (11.5-14.5)
[2018-02-04 11:41] LABS: WHITE BLOOD COUNT 14.7 10^3/ul (4.8-10.8)
[2018-02-04 11:46] LABS: POSITIVE DIFF @See below
[2018-02-04 12:00] LABS: INR 1.24; PROTIME 15.8 Sec (11.9-14.9); PT RATIO 1.2
[2018-02-04 12:01] LABS: PARTIAL THROMBOPLASTIN TIME 28.4 Sec (25.0-35.0)
[2018-02-04] MEDS: HEPARIN 1000 UNITS/ML 10 ML INJ IV ×2 (12:14→19:38)
[2018-02-04] MEDS: HEPARIN 25000 UNITS/250 ML 250 ML IV (12:20)
[2018-02-04] MEDS: FENTAnyl (DRIP) 1000 mcg/100mL 100 ML IV (12:29)
[2018-02-04] MEDS: POTASSIUM PHOSPHATE 40 MEQ in SOD CHLORIDE 0.9% 250 ML IVPB (12:33)
[2018-02-04] MEDS: FUROSEMIDE 40 MG INJ IV (15:05)
[2018-02-04] MEDS: MIDAZOLAM (DRIP) 50 mg/50 mL 50 ML IV (15:05)
[2018-02-04 18:57] LABS: INR 1.32; PROTIME 16.6 Sec (11.9-14.9); PT RATIO 1.3
[2018-02-04 18:58] LABS: PARTIAL THROMBOPLASTIN TIME 34.2 Sec (25.0-35.0)
[2018-02-04] MEDS: LEVOFLOXACIN 500MG/D5W (PMX) 100 ML IVPB (19:36)
[2018-02-04] MEDS: ATORVASTATIN 20 MG TAB PO (20:58)
[2018-02-05] MEDS: ACCU-CHEK XX ×18 (00:26→16:05)
[2018-02-05] MEDS: INSULIN HUMAN REGULAR 100 UNIT in SOD CHLORIDE 0.9% 99 ML IV (01:20)
[2018-02-05 01:40] LABS: POTASSIUM 4.1 mmol/L (3.5-5.1)
[2018-02-05 01:57] LABS: PARTIAL THROMBOPLASTIN TIME 75.7 Sec (25.0-35.0)
[2018-02-05] MEDS: MIDAZOLAM (DRIP) 50 mg/50 mL 50 ML IV ×2 (04:09→15:37)
[2018-02-05 05:19] LABS: ADD MAN DIFF? NO
[2018-02-05 05:25] LABS: ABNORMAL IP MESSAGE 1; BASOPHILS % 0.1 % (0.0-2.0); HEMATOCRIT 23.9 % (37.0-47.0); HEMOGLOBIN 7.7 g/dl (12.0-16.0); LYMPHOCYTES # 0.6 10^3/ul (0.8-2.9); LYMPHOCYTES % 4.5 % (15.0-51.0); MEAN CORPUSCULAR HEMOGLOBIN 26.9 pg (29.0-33.0); MEAN CORPUSCULAR HGB CONC 32.2 g/dl (32.0-37.0); MEAN CORPUSCULAR VOLUME 83.6 fl (82.0-101.0); MEAN PLATELET VOLUME 9.9 fl (7.4-10.4); MONOCYTE # 0.8 10^3/ul (0.3-0.9); MONOCYTES % 6.9 % (0.0-11.0); NEUTROPHIL # 10.8 10^3/ul (1.6-7.5); NEUTROPHILS % 87.7 % (39.0-77.0); PLATELET COUNT 204 10^3/UL (140-415); RED BLOOD COUNT 2.86 10^6/ul (4.20-5.40); RED CELL DISTRIBUTION WIDTH 17.3 % (11.5-14.5)
[2018-02-05 05:25] LABS: WHITE BLOOD COUNT 12.3 10^3/ul (4.8-10.8)
[2018-02-05] MEDS: PANTOPRAZOLE 40 MG INJ IV (05:29)
[2018-02-05] MEDS: D5W-0.45 NACL + KCL 20 MEQ 1,000 ML IV (05:30)
[2018-02-05] MEDS: METHYLPREDNISOLONE 125 MG INJ IV (05:30)
[2018-02-05 05:39] LABS: POSITIVE DIFF @See below
[2018-02-05 05:59] LABS: MAGNESIUM 1.9 mg/dl (1.7-2.5)
[2018-02-05 05:59] LABS: PHOSPHORUS 3.7 mg/dl (2.5-4.9)
[2018-02-05 06:03] LABS: CREATINE KINASE 120 IU/L (23-200)
[2018-02-05 06:08] LABS: CK INDEX 2.7; CK-MB 3.28 ng/ml (0.0-2.4)
[2018-02-05 06:10] LABS: ANION GAP 9 (8-16); BLOOD UREA NITROGEN 30 mg/dl (7-20); CALCIUM 7.3 mg/dl (8.4-10.2); CARBON DIOXIDE 24 mmol/L (21-31); CHLORIDE 114 mmol/L (97-110); CREATININE 1.26 mg/dl (0.44-1.00); GLUCOSE 110 mg/dl (70-220); POTASSIUM 4.2 mmol/L (3.5-5.1); SODIUM 143 mmol/L (135-144)
[2018-02-05 07:36] LABS: AADO2 Arterial 88.9 mmHg (7.0-24.0); Arterial Base Excess -1.6 mmol/L (-3.0-3); Arterial Blood Gas Oxygen Sat 96.8 mmHG (95.0-100.0); Arterial COHb 0.3 % (0.0-3.0); Arterial Fraction of Oxyhgb 96.2 % (93.0-99.0); Arterial HCO3 20.9 mmol/L (22.0-26.0); Arterial MetHb 0.3 % (0.0-1.5); Arterial Total Hemglobin 8.3 g/dl (12.0-18.0); Arterial pCO2 27.1 mmhg (35-45); MODE VENT - AC; Site A-Line
[2018-02-05] MEDS: ASPIRIN 81 MG TAB PO (09:36)
[2018-02-05] MEDS: LISINOPRIL 5 MG TAB PO (09:36)
[2018-02-05] MEDS: COLLAGENASE 5 GM (UD JAR) TOP (09:36)
[2018-02-05] MEDS: METOCLOPRAMIDE 5 MG TAB PO ×3 (09:36→21:21)
[2018-02-05] MEDS: TICAGRELOR 90 MG TABLET PO ×2 (09:38→21:19)
[2018-02-05] MEDS: FENTAnyl (DRIP) 1000 mcg/100mL 100 ML IV (10:18)
[2018-02-05 10:23] LABS: PARTIAL THROMBOPLASTIN TIME 37.9 Sec (25.0-35.0)
[2018-02-05 13:21] LABS: INR 1.19; PROTIME 15.3 Sec (11.9-14.9); PT RATIO 1.2
[2018-02-05 13:22] LABS: PARTIAL THROMBOPLASTIN TIME 26.4 Sec (25.0-35.0)
[2018-02-05 14:21] LABS: CREATINE KINASE 110 IU/L (23-200)
[2018-02-05 14:34] LABS: CK INDEX 2.4; CK-MB 2.59 ng/ml (0.0-2.4)
[2018-02-05] MEDS: LIDOCAINE 1% (MDV) 20 ML INJ SC (14:45)
[2018-02-05] MEDS ORDERED: DEXTROSE 50% 50 ML SYRINGE IV ×2 (15:00)
[2018-02-05] MEDS ORDERED: GLUCOSE GEL 15 GRAM TUBE PO ×2 (15:00)
[2018-02-05] MEDS ORDERED: GLUCOSE GEL 15 GRAM TUBE BUCCAL (15:00)
[2018-02-05] MEDS ORDERED: GLUCAGON 1 MG INJ IM (15:00)
[2018-02-05] MEDS: INSULIN GLARGINE [LANTus] (100 UNITS/ML) SYG SC ×2 (16:44→21:20)
[2018-02-05 16:57] LABS: IMMEDIATE SPIN CROSSMATCH 1 1
[2018-02-05] MEDS: INSULIN ASPART [NOVOLOG] 3 ML PEN SC ×2 (17:00→21:00)
[2018-02-05 17:18] LABS: POTASSIUM 3.9 mmol/L (3.5-5.1)
[2018-02-05] MEDS: LEVOFLOXACIN 500MG/D5W (PMX) 100 ML IVPB (19:07)
[2018-02-05] MEDS: ATORVASTATIN 20 MG TAB PO (21:21)
[2018-02-05] MEDS: morphine 2 MG INJ IV (22:48)
[2018-02-05] MEDS: POTASSIUM CHLORIDE 50 ML IVPB (22:52)
[2018-02-06] MEDS: INSULIN ASPART [NOVOLOG] 3 ML PEN SC ×6 (01:31→20:31)
[2018-02-06] MEDS: ACCU-CHEK XX (02:07)
[2018-02-06] MEDS: MIDAZOLAM (DRIP) 50 mg/50 mL 50 ML IV (02:27)
[2018-02-06] MEDS: D5W-0.45 NACL + KCL 20 MEQ 1,000 ML IV (03:11)
[2018-02-06 05:26] LABS: ADD MAN DIFF? NO
[2018-02-06 05:38] LABS: BASOPHILS % 0.1 % (0.0-2.0); HEMOGLOBIN 9.4 g/dl (12.0-16.0); LYMPHOCYTES # 1.2 10^3/ul (0.8-2.9); LYMPHOCYTES % 9.1 % (15.0-51.0); MEAN CORPUSCULAR HEMOGLOBIN 27.7 pg (29.0-33.0); MEAN CORPUSCULAR HGB CONC 32.4 g/dl (32.0-37.0); MEAN CORPUSCULAR VOLUME 85.5 fl (82.0-101.0); MEAN PLATELET VOLUME 10.5 fl (7.4-10.4); MONOCYTE # 1.2 10^3/ul (0.3-0.9); MONOCYTES % 9.6 % (0.0-11.0); NEUTROPHIL # 10.4 10^3/ul (1.6-7.5); NEUTROPHILS % 80.6 % (39.0-77.0); PLATELET COUNT 138 10^3/UL (140-415); RED BLOOD COUNT 3.39 10^6/ul (4.20-5.40); RED CELL DISTRIBUTION WIDTH 16.5 % (11.5-14.5)
[2018-02-06 05:38] LABS: WHITE BLOOD COUNT 12.9 10^3/ul (4.8-10.8)
[2018-02-06 05:57] LABS: ALANINE AMINOTRANSFERASE 52 IU/L (13-69); ALBUMIN 2.1 g/dl (3.3-4.9); ALBUMIN/GLOBULIN RATIO 0.95; ALKALINE PHOSPHATASE 44 IU/L (42-121); ANION GAP 9 (8-16); ASPARTATE AMINO TRANSFERASE 104 IU/L (15-46); BILIRUBIN,INDIRECT 0.2 mg/dl (0-1.1); BILIRUBIN,TOTAL 0.2 mg/dl (0.2-1.3); BLOOD UREA NITROGEN 31 mg/dl (7-20); CALCIUM 7.5 mg/dl (8.4-10.2); CARBON DIOXIDE 22 mmol/L (21-31); CHLORIDE 114 mmol/L (97-110); CREATININE 1.48 mg/dl (0.44-1.00); GLUCOSE 131 mg/dl (70-220); POTASSIUM 4.3 mmol/L (3.5-5.1); SODIUM 141 mmol/L (135-144); TOTAL PROTEIN 4.3 g/dl (6.1-8.1)
[2018-02-06 06:17] LABS: MAGNESIUM 1.9 mg/dl (1.7-2.5)
[2018-02-06] MEDS: PANTOPRAZOLE 40 MG INJ IV (06:22)
[2018-02-06] MEDS: ASPIRIN 81 MG TAB PO (08:50)
[2018-02-06] MEDS: COLLAGENASE 5 GM (UD JAR) TOP (08:50)
[2018-02-06] MEDS: METOCLOPRAMIDE 5 MG TAB PO ×3 (08:50→20:32)
[2018-02-06] MEDS: LISINOPRIL 5 MG TAB PO (08:50)
[2018-02-06] MEDS: TICAGRELOR 90 MG TABLET PO ×2 (08:59→20:32)
[2018-02-06] MEDS: INSULIN GLARGINE [LANTus] (100 UNITS/ML) SYG SC ×2 (10:13→20:31)
[2018-02-06] MEDS: morphine 2 MG INJ IV (11:05)
[2018-02-06 11:44] LABS: AADO2 Arterial 103.1 mmHg (7.0-24.0); Allen Test ACCEPTAB; Arterial Blood Gas Oxygen Sat 95.6 mmHG (95.0-100.0); Arterial COHb 0.3 % (0.0-3.0); Arterial HCO3 17.6 mmol/L (22.0-26.0); Arterial MetHb 0.3 % (0.0-1.5); Arterial Total Hemglobin 11.4 g/dl (12.0-18.0); Arterial pCO2 25.8 mmhg (35-45); Blood Gas PS 10; MODE VENT - CPAP; Site Right Radial
[2018-02-06] MEDS: METOPROLOL 25 MG TAB PO ×2 (15:01→23:20)
[2018-02-06] MEDS: LEVOFLOXACIN 500MG/D5W (PMX) 100 ML IVPB (19:41)
[2018-02-06] MEDS: ATORVASTATIN 20 MG TAB PO (20:32)
[2018-02-06] MEDS: ONDANSETRON 4 MG INJ IV (22:19)
[2018-02-07] MEDS: D5W-0.45 NACL + KCL 20 MEQ 1,000 ML IV ×2 (00:44→17:30)
[2018-02-07] MEDS: morphine 2 MG INJ IV ×3 (00:51→18:54)
[2018-02-07] MEDS: INSULIN ASPART [NOVOLOG] 3 ML PEN SC ×6 (01:12→20:41)
[2018-02-07] MEDS: ACCU-CHEK XX (01:18)
[2018-02-07 05:30] LABS: ADD MAN DIFF? NO
[2018-02-07 05:34] LABS: WHITE BLOOD COUNT 17.4 10^3/ul (4.8-10.8)
[2018-02-07 05:34] LABS: BASOPHILS % 0.2 % (0.0-2.0); HEMATOCRIT 31.9 % (37.0-47.0); HEMOGLOBIN 10.4 g/dl (12.0-16.0); LYMPHOCYTES % 5.6 % (15.0-51.0); MEAN CORPUSCULAR HEMOGLOBIN 27.4 pg (29.0-33.0); MEAN CORPUSCULAR HGB CONC 32.6 g/dl (32.0-37.0); MEAN CORPUSCULAR VOLUME 83.9 fl (82.0-101.0); MEAN PLATELET VOLUME 10.5 fl (7.4-10.4); MONOCYTE # 1.4 10^3/ul (0.3-0.9); MONOCYTES % 8.3 % (0.0-11.0); NEUTROPHIL # 14.9 10^3/ul (1.6-7.5); NEUTROPHILS % 85.2 % (39.0-77.0); PLATELET COUNT 131 10^3/UL (140-415); RED CELL DISTRIBUTION WIDTH 16.4 % (11.5-14.5)
[2018-02-07 05:58] LABS: ANION GAP 11 (8-16); BLOOD UREA NITROGEN 20 mg/dl (7-20); CARBON DIOXIDE 24 mmol/L (21-31); CHLORIDE 110 mmol/L (97-110); CREATININE 1.32 mg/dl (0.44-1.00); GLUCOSE 190 mg/dl (70-220); POTASSIUM 3.6 mmol/L (3.5-5.1); SODIUM 141 mmol/L (135-144)
[2018-02-07] MEDS: PANTOPRAZOLE 40 MG INJ IV (06:20)
[2018-02-07 07:36] LABS: HEMOGLOBIN A1C 7.5 % (0-5.9)
[2018-02-07 08:13] LABS: AADO2 Arterial 83.8 mmHg (7.0-24.0); Allen Test ACCEPTAB; Arterial Base Excess -1.8 mmol/L (-3.0-3); Arterial Blood Gas Oxygen Sat 96.1 mmHG (95.0-100.0); Arterial COHb 0.3 % (0.0-3.0); Arterial Fraction of Oxyhgb 95.5 % (93.0-99.0); Arterial HCO3 20.4 mmol/L (22.0-26.0); Arterial MetHb 0.3 % (0.0-1.5); Arterial pCO2 26.3 mmhg (35-45); MODE NASAL CANNULA; Site Right Radial
[2018-02-07] MEDS: INSULIN GLARGINE [LANTus] (100 UNITS/ML) SYG SC ×2 (08:27→21:07)
[2018-02-07] MEDS: METOCLOPRAMIDE 5 MG TAB PO ×3 (08:29→20:24)
[2018-02-07] MEDS: LISINOPRIL 5 MG TAB PO (08:29)
[2018-02-07] MEDS: TICAGRELOR 90 MG TABLET PO ×2 (08:30→20:40)
[2018-02-07] MEDS: COLLAGENASE 5 GM (UD JAR) TOP (08:30)
[2018-02-07] MEDS: METOPROLOL 25 MG TAB PO ×2 (08:30→20:25)
[2018-02-07] MEDS: POTASSIUM CHLORIDE 50 ML IVPB ×2 (08:31→10:41)
[2018-02-07] MEDS: ASPIRIN 81 MG TAB PO (08:31)
[2018-02-07] MEDS ORDERED: ATROPINE 1 MG/10 ML SYRINGE (11:16)
[2018-02-07] MEDS ORDERED: LINAGLIPTIN 5 MG TABLET PO (11:30)
[2018-02-07] MEDS: LINAGLIPTIN 5 MG TABLET PO (11:50)
[2018-02-07] MEDS: FAMOTIDINE 20 MG TAB PO (11:50)
[2018-02-07] MEDS: LEVOFLOXACIN 500MG/D5W (PMX) 100 ML IVPB (20:23)
[2018-02-07] MEDS: ATORVASTATIN 20 MG TAB PO (20:23)
[2018-02-08] MEDS: ONDANSETRON 4 MG INJ IV ×2 (00:10→06:03)
[2018-02-08] MEDS: D5W-0.45 NACL + KCL 20 MEQ 1,000 ML IV (00:14)
[2018-02-08] MEDS: morphine 2 MG INJ IV ×4 (00:52→15:53)
[2018-02-08] MEDS: INSULIN ASPART [NOVOLOG] 3 ML PEN SC ×6 (01:45→21:00)
[2018-02-08] MEDS: ACCU-CHEK XX (02:16)
[2018-02-08] MEDS: PANTOPRAZOLE 40 MG INJ IV (05:25)
[2018-02-08] MEDS: METOCLOPRAMIDE 5 MG TAB PO ×3 (08:14→20:21)
[2018-02-08] MEDS: ASPIRIN 81 MG TAB PO (08:14)
[2018-02-08] MEDS: METOPROLOL 25 MG TAB PO ×2 (08:14→20:23)
[2018-02-08] MEDS: LISINOPRIL 5 MG TAB PO (08:14)
[2018-02-08] MEDS: LINAGLIPTIN 5 MG TABLET PO (08:16)
[2018-02-08] MEDS: INSULIN GLARGINE [LANTus] (100 UNITS/ML) SYG SC ×2 (08:39→20:49)
[2018-02-08] MEDS: TICAGRELOR 90 MG TABLET PO ×2 (08:39→20:49)
[2018-02-08] MEDS: COLLAGENASE 5 GM (UD JAR) TOP (09:04)
[2018-02-08 09:13] LABS: ADD MAN DIFF? NO
[2018-02-08 09:20] LABS: WHITE BLOOD COUNT 14.1 10^3/ul (4.8-10.8)
[2018-02-08 09:20] LABS: BASOPHILS % 0.1 % (0.0-2.0); EOSINOPHILS % 0.1 % (0.0-7.0); HEMOGLOBIN 10.2 g/dl (12.0-16.0); LYMPHOCYTES # 0.7 10^3/ul (0.8-2.9); LYMPHOCYTES % 4.7 % (15.0-51.0); MEAN CORPUSCULAR HEMOGLOBIN 27.2 pg (29.0-33.0); MEAN CORPUSCULAR HGB CONC 32.9 g/dl (32.0-37.0); MEAN CORPUSCULAR VOLUME 82.7 fl (82.0-101.0); MEAN PLATELET VOLUME 10.7 fl (7.4-10.4); MONOCYTE # 1.3 10^3/ul (0.3-0.9); MONOCYTES % 9.2 % (0.0-11.0); NEUTROPHILS % 84.7 % (39.0-77.0); PLATELET COUNT 143 10^3/UL (140-415); RED BLOOD COUNT 3.75 10^6/ul (4.20-5.40); RED CELL DISTRIBUTION WIDTH 16.1 % (11.5-14.5)
[2018-02-08 09:53] LABS: ANION GAP 11 (8-16); BLOOD UREA NITROGEN 16 mg/dl (7-20); CARBON DIOXIDE 25 mmol/L (21-31); CHLORIDE 105 mmol/L (97-110); CREATININE 1.14 mg/dl (0.44-1.00); GLUCOSE 110 mg/dl (70-220); POTASSIUM 3.8 mmol/L (3.5-5.1); SODIUM 137 mmol/L (135-144)
[2018-02-08] MEDS: LEVOFLOXACIN 500MG/D5W (PMX) 100 ML IVPB (18:14)
[2018-02-08] MEDS: LORAZEPAM 2 MG INJ IV (19:28)
[2018-02-08] MEDS: ATORVASTATIN 20 MG TAB PO (20:22)
[2018-02-09] MEDS: ACCU-CHEK XX (02:00)
[2018-02-09] MEDS: PANTOPRAZOLE 40 MG INJ IV (05:44)
[2018-02-09] MEDS: FUROSEMIDE 20 MG INJ IV (05:45)
[2018-02-09 06:35] LABS: ADD MAN DIFF? NO
[2018-02-09 06:50] LABS: BASOPHILS % 0.2 % (0.0-2.0); EOSINOPHILS % 0.1 % (0.0-7.0); HEMATOCRIT 35.7 % (37.0-47.0); HEMOGLOBIN 11.9 g/dl (12.0-16.0); LYMPHOCYTES # 0.8 10^3/ul (0.8-2.9); LYMPHOCYTES % 7.6 % (15.0-51.0); MEAN CORPUSCULAR HEMOGLOBIN 27.2 pg (29.0-33.0); MEAN CORPUSCULAR HGB CONC 33.3 g/dl (32.0-37.0); MEAN CORPUSCULAR VOLUME 81.7 fl (82.0-101.0); MEAN PLATELET VOLUME 11.1 fl (7.4-10.4); MONOCYTE # 1.1 10^3/ul (0.3-0.9); MONOCYTES % 10.4 % (0.0-11.0); NEUTROPHIL # 8.7 10^3/ul (1.6-7.5); NEUTROPHILS % 80.3 % (39.0-77.0); PLATELET COUNT 202 10^3/UL (140-415); RED BLOOD COUNT 4.37 10^6/ul (4.20-5.40); RED CELL DISTRIBUTION WIDTH 16.2 % (11.5-14.5)
[2018-02-09 06:50] LABS: WHITE BLOOD COUNT 10.9 10^3/ul (4.8-10.8)
[2018-02-09 07:04] LABS: INR 1.58; PROTIME 19.2 Sec (11.9-14.9); PT RATIO 1.5
[2018-02-09 07:05] LABS: PARTIAL THROMBOPLASTIN TIME 38.4 Sec (25.0-35.0)
[2018-02-09 07:12] LABS: ANION GAP 12 (8-16); BLOOD UREA NITROGEN 17 mg/dl (7-20); CALCIUM 8.7 mg/dl (8.4-10.2); CARBON DIOXIDE 25 mmol/L (21-31); CHLORIDE 102 mmol/L (97-110); CREATININE 1.15 mg/dl (0.44-1.00); GLUCOSE 144 mg/dl (70-220); POTASSIUM 3.7 mmol/L (3.5-5.1); SODIUM 135 mmol/L (135-144)
[2018-02-09] MEDS: INSULIN ASPART [NOVOLOG] 3 ML PEN SC ×4 (07:55→20:12)
[2018-02-09] MEDS: LISINOPRIL 5 MG TAB PO (08:15)
[2018-02-09] MEDS: COLLAGENASE 5 GM (UD JAR) TOP (08:15)
[2018-02-09] MEDS: LINAGLIPTIN 5 MG TABLET PO (08:15)
[2018-02-09] MEDS: ASPIRIN 81 MG TAB PO (08:15)
[2018-02-09] MEDS: METOCLOPRAMIDE 5 MG TAB PO ×3 (08:16→20:10)
[2018-02-09] MEDS: METOPROLOL 25 MG TAB PO ×2 (08:16→20:10)
[2018-02-09] MEDS: TICAGRELOR 90 MG TABLET PO ×2 (08:38→20:54)
[2018-02-09] MEDS: INSULIN GLARGINE [LANTus] (100 UNITS/ML) SYG SC ×2 (08:39→20:55)
[2018-02-09] MEDS: DIPHENHYDRAMINE 50 MG CAP PO (10:00)
[2018-02-09] MEDS: DIAZEPAM 5 MG TAB PO (10:00)
[2018-02-09] MEDS: morphine 2 MG INJ IV (10:45)
[2018-02-09] MEDS: AL HYDROX/MG HYDROX/SIMETH 30 ML CUP PO ×2 (14:41→23:21)
[2018-02-09] MEDS: FAMOTIDINE 20 MG TAB PO (16:17)
[2018-02-09] MEDS: ATORVASTATIN 20 MG TAB PO (20:10)
[2018-02-09] MEDS: ACETAMINOPHEN 325 MG TAB PO (23:21)
[2018-02-10] MEDS: ACCU-CHEK XX (02:00)
[2018-02-10] MEDS: FUROSEMIDE 20 MG INJ IV (06:05)
[2018-02-10] MEDS: PANTOPRAZOLE 40 MG INJ IV (06:05)
[2018-02-10 07:15] LABS: ADD MAN DIFF? NO
[2018-02-10 07:19] LABS: WHITE BLOOD COUNT 8.5 10^3/ul (4.8-10.8)
[2018-02-10 07:19] LABS: BASOPHILS % 0.1 % (0.0-2.0); HEMATOCRIT 33.6 % (37.0-47.0); HEMOGLOBIN 11.3 g/dl (12.0-16.0); LYMPHOCYTES # 0.8 10^3/ul (0.8-2.9); LYMPHOCYTES % 9.3 % (15.0-51.0); MEAN CORPUSCULAR HEMOGLOBIN 27.6 pg (29.0-33.0); MEAN CORPUSCULAR HGB CONC 33.6 g/dl (32.0-37.0); MEAN PLATELET VOLUME 10.9 fl (7.4-10.4); MONOCYTE # 1.1 10^3/ul (0.3-0.9); MONOCYTES % 13.1 % (0.0-11.0); NEUTROPHIL # 6.5 10^3/ul (1.6-7.5); NEUTROPHILS % 76.3 % (39.0-77.0); PLATELET COUNT 230 10^3/UL (140-415); RED CELL DISTRIBUTION WIDTH 15.9 % (11.5-14.5)
[2018-02-10] MEDS: INSULIN ASPART [NOVOLOG] 3 ML PEN SC ×4 (08:01→20:58)
[2018-02-10] MEDS: LISINOPRIL 5 MG TAB PO (08:09)
[2018-02-10] MEDS: METOPROLOL 25 MG TAB PO ×2 (08:09→20:56)
[2018-02-10] MEDS: METOCLOPRAMIDE 5 MG TAB PO ×3 (08:10→20:55)
[2018-02-10] MEDS: LINAGLIPTIN 5 MG TABLET PO (08:10)
[2018-02-10] MEDS: ASPIRIN 81 MG TAB PO (08:10)
[2018-02-10] MEDS: COLLAGENASE 5 GM (UD JAR) TOP (08:10)
[2018-02-10] MEDS: INSULIN GLARGINE [LANTus] (100 UNITS/ML) SYG SC ×2 (08:15→20:57)
[2018-02-10] MEDS: TICAGRELOR 90 MG TABLET PO ×2 (08:15→20:57)
[2018-02-10] MEDS: DIPHENHYDRAMINE 50 MG CAP PO (11:45)
[2018-02-10] MEDS: DIAZEPAM 5 MG TAB PO (11:45)
[2018-02-10] MEDS ORDERED: SOD CHLORIDE 0.9% 500 ML (13:53)
[2018-02-10] MEDS ORDERED: LIDOCAINE 1% (MDV) 20 ML INJ (13:53)
[2018-02-10] MEDS ORDERED: FENTAnyl 50 MCG/ML VIAL (13:54)
[2018-02-10] MEDS ORDERED: MIDAZOLAM 1 MG/ML 2 ML INJ (13:54)
[2018-02-10] MEDS ORDERED: NITROGLYCERIN (IC) 100 MCG/ML INJ (13:54)
[2018-02-10] MEDS ORDERED: IODIXANOL LOCM 100 ML BTL (13:54)
[2018-02-10] MEDS ORDERED: IODIXANOL LOCM 50 ML BTL (13:54)
[2018-02-10] MEDS ORDERED: BIVALIRUDIN 250MG /NS 50 ML 50 ML IVPB (14:39)
[2018-02-10] MEDS ORDERED: SOD CHLORIDE 0.9% 1,000 ML IV (15:27)
[2018-02-10] MEDS ORDERED: ONDANSETRON 4 MG INJ IV (15:30)
[2018-02-10] MEDS ORDERED: AL HYDROX/MG HYDROX/SIMETH 30 ML CUP PO (15:30)
[2018-02-10] MEDS ORDERED: ZOLPIDEM 5 MG TAB PO (15:30)
[2018-02-10] MEDS: ATORVASTATIN 20 MG TAB PO (20:55)
[2018-02-10] MEDS: ACETAMINOPHEN 325 MG TAB PO (22:48)
[2018-02-11] MEDS: OXYCODONE/ACETAMINOPHEN (5/325) TAB PO ×2 (00:50→09:35)
[2018-02-11] MEDS: ACCU-CHEK XX (01:49)
[2018-02-11] MEDS: PANTOPRAZOLE 40 MG INJ IV (05:33)
[2018-02-11] MEDS: FUROSEMIDE 20 MG INJ IV (05:33)
[2018-02-11 07:06] LABS: ADD MAN DIFF? NO
[2018-02-11 07:13] LABS: BASOPHILS % 0.2 % (0.0-2.0); HEMATOCRIT 31.5 % (37.0-47.0); HEMOGLOBIN 10.7 g/dl (12.0-16.0); LYMPHOCYTES # 1.4 10^3/ul (0.8-2.9); LYMPHOCYTES % 13.8 % (15.0-51.0); MEAN CORPUSCULAR HEMOGLOBIN 27.9 pg (29.0-33.0); MEAN CORPUSCULAR VOLUME 82.2 fl (82.0-101.0); MEAN PLATELET VOLUME 10.6 fl (7.4-10.4); MONOCYTE # 1.3 10^3/ul (0.3-0.9); MONOCYTES % 12.3 % (0.0-11.0); NEUTROPHIL # 7.4 10^3/ul (1.6-7.5); NEUTROPHILS % 72.6 % (39.0-77.0); PLATELET COUNT 276 10^3/UL (140-415); RED BLOOD COUNT 3.83 10^6/ul (4.20-5.40); RED CELL DISTRIBUTION WIDTH 15.9 % (11.5-14.5)
[2018-02-11 07:13] LABS: WHITE BLOOD COUNT 10.2 10^3/ul (4.8-10.8)
[2018-02-11 07:35] LABS: ANION GAP 8 (8-16); CALCIUM 8.3 mg/dl (8.4-10.2); CARBON DIOXIDE 30 mmol/L (21-31); CHLORIDE 102 mmol/L (97-110); CREATINE KINASE 34 IU/L (23-200); CREATININE 1.45 mg/dl (0.44-1.00); GLUCOSE 88 mg/dl (70-220); POTASSIUM 3.2 mmol/L (3.5-5.1); SODIUM 137 mmol/L (135-144)
[2018-02-11 07:45] LABS: CK INDEX 5.2; CK-MB 1.77 ng/ml (0.0-2.4)
[2018-02-11 07:53] LABS: BLOOD UREA NITROGEN 20 mg/dl (7-20); TROPONIN-I 0.686 ng/ml (0.000-0.120)
[2018-02-11] MEDS: INSULIN ASPART [NOVOLOG] 3 ML PEN SC ×2 (07:55→12:07)
[2018-02-11] MEDS: INSULIN GLARGINE [LANTus] (100 UNITS/ML) SYG SC (07:59)
[2018-02-11] MEDS: TICAGRELOR 90 MG TABLET PO (09:33)
[2018-02-11] MEDS: METOPROLOL 25 MG TAB PO (09:35)
[2018-02-11] MEDS: LINAGLIPTIN 5 MG TABLET PO (09:35)
[2018-02-11] MEDS: METOCLOPRAMIDE 5 MG TAB PO ×2 (09:35→12:07)
[2018-02-11] MEDS: ASPIRIN 81 MG TAB PO (09:36)
[2018-02-11] MEDS: LISINOPRIL 5 MG TAB PO (09:36)
[2018-02-11] MEDS: COLLAGENASE 5 GM (UD JAR) TOP (09:37)
[2018-02-11] MEDS: morphine 2 MG INJ IV (10:24)
[2018-02-11] MEDS: POTASSIUM CHLORIDE (SR) 20 MEQ TAB PO (12:14)
[2018-02-11] MEDS: LORAZEPAM 2 MG INJ IV (14:44)
[2018-02-12] MEDS ORDERED: FUROSEMIDE 20 MG TAB PO (09:00)
== END 2018-02-11 17:55 | DRG 270 ==
LOC: 6WM 02-07 19:03 → TEL 02-09 22:44 → E/R 03:07 → TEL 02-07 19:24 → PP2 05:47 → ICU 18:46
PROC: 027034Z Dilation of Coronary Artery, One Artery with Drug-eluting Intraluminal Device, Percutaneous Approach (ICD-10-PCS; principal; 2018-02-03 15:00)
PROC: 5A02210 Assistance with Cardiac Output using Balloon Pump, Continuous (ICD-10-PCS; 2018-02-03 15:00)
PROC: B215YZZ Fluoroscopy of Left Heart using Other Contrast (ICD-10-PCS; 2018-02-03 15:00)
PROC: B211YZZ Fluoroscopy of Multiple Coronary Arteries using Other Contrast (ICD-10-PCS; 2018-02-03 15:00)
PROC: 027034Z Dilation of Coronary Artery, One Artery with Drug-eluting Intraluminal Device, Percutaneous Approach (ICD-10-PCS; 2018-02-03 17:05)
PROC: 0BH17EZ Insertion of Endotracheal Airway into Trachea, Via Natural or Artificial Opening (ICD-10-PCS; 2018-02-03 17:05)
PROC: 30233N1 Transfusion of Nonautologous Red Blood Cells into Peripheral Vein, Percutaneous Approach (ICD-10-PCS; 2018-02-03 17:05)
PROC: 5A1945Z Respiratory Ventilation, 24-96 Consecutive Hours (ICD-10-PCS; 2018-02-03 17:05)
PROC: 02HV33Z Insertion of Infusion Device into Superior Vena Cava, Percutaneous Approach (ICD-10-PCS; 2018-02-03 17:05)
DX: I21.4 Non-ST elevation (NSTEMI) myocardial infarction (principal); J96.01 Acute respiratory failure with hypoxia; I50.23 Acute on chronic systolic (congestive) heart failure; R57.0 Cardiogenic shock; J69.0 Pneumonitis due to inhalation of food and vomit; N39.0 Urinary tract infection, site not specified; N17.9 Acute kidney failure, unspecified; E11.9 Type 2 diabetes mellitus without complications; E78.5 Hyperlipidemia, unspecified; I11.0 Hypertensive heart disease with heart failure; E11.65 Type 2 diabetes mellitus with hyperglycemia; D64.9 Anemia, unspecified; I25.5 Ischemic cardiomyopathy; E87.6 Hypokalemia; D69.6 Thrombocytopenia, unspecified
CPT/HCPCS: 36430; 36569; 36600; 71045; 74176; 74181; 76937; 80048; 80053; 81001; 82150; 82378; 82550; 82553; 82803; 82962; 83036; 83605; 83690; 83735; 83880; 84100; 84132; 84484; 85025; 85610; 85730; 86301; 86850; 86900; 86901; 86920; 87081; 87086; 93005; 93306; 93454; 93458; 93970; 94002; 94003; 94640; 94664; 94770; 97110; 97167; 97535; 99217; G0378

== ENCOUNTER 2018-04-06 14:36 | Inpatient (IN) | payer MEDICARE, OTHER ==
[2018-04-06 15:05] LABS: ADD MAN DIFF? NO
[2018-04-06 15:16] LABS: BASOPHILS % 0.3 % (0.0-2.0); LYMPHOCYTES # 1.6 10^3/ul (0.8-2.9); LYMPHOCYTES % 10.5 % (15.0-51.0); MEAN CORPUSCULAR HEMOGLOBIN 25.1 pg (29.0-33.0); MEAN PLATELET VOLUME 9.6 fl (7.4-10.4); MONOCYTE # 1.2 10^3/ul (0.3-0.9); MONOCYTES % 8.3 % (0.0-11.0); NEUTROPHILS % 80.4 % (39.0-77.0); RED BLOOD COUNT 3.31 10^6/ul (4.20-5.40); RED CELL DISTRIBUTION WIDTH 16.4 % (11.5-14.5)
[2018-04-06 15:30] LABS: WHITE BLOOD COUNT 14.9 10^3/ul (4.8-10.8)
[2018-04-06 15:30] LABS: HEMOGLOBIN 8.3 g/dl (12.0-16.0); HOLD TRANSMISSIONS 1; PLATELET COUNT 444 10^3/UL (140-415)
[2018-04-06 15:31] LABS: HEMATOCRIT 26.8 % (37.0-47.0)
[2018-04-06 15:56] LABS: ANION GAP 13 (5-13); BLOOD UREA NITROGEN 13 mg/dl (7-20); CALCIUM 8.9 mg/dl (8.4-10.2); CARBON DIOXIDE 20 mmol/L (21-31); CHLORIDE 99 mmol/L (97-110); CREATININE 0.73 mg/dl (0.44-1.00); GLUCOSE 276 mg/dl (70-220); POTASSIUM 4.4 mmol/L (3.5-5.1); SODIUM 132 mmol/L (135-144)
[2018-04-06 15:57] LABS: INR 1.21; PT RATIO 1.2
[2018-04-06 16:15] LABS: PARTIAL THROMBOPLASTIN TIME 45.4 Sec (23.0-35.0); PROTIME 15.5 Sec (11.9-14.9)
[2018-04-06] MEDS: INSULIN ASPART [NOVOLOG] 3 ML PEN SC ×4 (16:23→21:00)
[2018-04-06] MEDS ORDERED: ZOLPIDEM 5 MG TAB PO (17:00)
[2018-04-06] MEDS ORDERED: NACL 0.9% 3 ML SYG IV (17:00)
[2018-04-06] MEDS ORDERED: GLUCAGON 1 MG INJ IM (17:30)
[2018-04-06] MEDS ORDERED: DEXTROSE 50% 50 ML SYRINGE IV (17:30)
[2018-04-06] MEDS ORDERED: GLUCOSE GEL 15 GRAM TUBE BUCCAL (17:30)
[2018-04-06] MEDS ORDERED: GLUCOSE GEL 15 GRAM TUBE PO ×2 (17:30)
[2018-04-06] MEDS: CEFAZOLIN 2 GM/50 ML (PMX) 50 ML IVPB (17:53)
[2018-04-06] MEDS: OXYCODONE/ACETAMINOPHEN (5/325) TAB PO (21:12)
[2018-04-06] MEDS: METOPROLOL (XL) 25 MG TAB PO (21:13)
[2018-04-06] MEDS: LISINOPRIL 5 MG TAB PO (21:13)
[2018-04-06] MEDS: ATORVASTATIN 40 MG TAB PO (21:13)
[2018-04-06] MEDS: INSULIN GLARGINE [LANTus] (100 UNITS/ML) SYG SC (22:10)
[2018-04-07 05:38] LABS: ADD MAN DIFF? NO
[2018-04-07 05:47] LABS: WHITE BLOOD COUNT 11.3 10^3/ul (4.8-10.8)
[2018-04-07 05:47] LABS: BASOPHILS % 0.4 % (0.0-2.0); HEMATOCRIT 23.9 % (37.0-47.0); HEMOGLOBIN 7.5 g/dl (12.0-16.0); LYMPHOCYTES # 2.3 10^3/ul (0.8-2.9); LYMPHOCYTES % 20.8 % (15.0-51.0); MEAN CORPUSCULAR HEMOGLOBIN 25.2 pg (29.0-33.0); MEAN CORPUSCULAR HGB CONC 31.4 g/dl (32.0-37.0); MEAN CORPUSCULAR VOLUME 80.2 fl (82.0-101.0); MEAN PLATELET VOLUME 9.8 fl (7.4-10.4); MONOCYTE # 1.1 10^3/ul (0.3-0.9); MONOCYTES % 9.9 % (0.0-11.0); NEUTROPHIL # 7.7 10^3/ul (1.6-7.5); NEUTROPHILS % 68.5 % (39.0-77.0); PLATELET COUNT 385 10^3/UL (140-415); RED BLOOD COUNT 2.98 10^6/ul (4.20-5.40); RED CELL DISTRIBUTION WIDTH 16.1 % (11.5-14.5)
[2018-04-07 06:12] LABS: IRON < 10 ug/dl (35-150)
[2018-04-07 06:19] LABS: ALANINE AMINOTRANSFERASE 16 IU/L (13-69); ALBUMIN 3.1 g/dl (3.3-4.9); ALBUMIN/GLOBULIN RATIO 1.24; ALKALINE PHOSPHATASE 86 IU/L (42-121); ANION GAP 10 (5-13); ASPARTATE AMINO TRANSFERASE 14 IU/L (15-46); BILIRUBIN,INDIRECT 0.2 mg/dl (0-1.1); BILIRUBIN,TOTAL 0.2 mg/dl (0.2-1.3); BLOOD UREA NITROGEN 12 mg/dl (7-20); CALCIUM 8.7 mg/dl (8.4-10.2); CARBON DIOXIDE 22 mmol/L (21-31); CHLORIDE 102 mmol/L (97-110); CREATININE 0.73 mg/dl (0.44-1.00); GLUCOSE 134 mg/dl (70-220); SODIUM 134 mmol/L (135-144); TOTAL PROTEIN 5.6 g/dl (6.1-8.1)
[2018-04-07 06:20] LABS: TOTAL IRON BINDING CAPACITY 299 ug/dl (241-421)
[2018-04-07] MEDS: OXYCODONE/ACETAMINOPHEN (5/325) TAB PO ×2 (06:39→19:56)
[2018-04-07 07:29] LABS: HEMOGLOBIN A1C 7.6 % (0-5.9)
[2018-04-07] MEDS: PANTOPRAZOLE (EC) 40 MG TAB PO (08:06)
[2018-04-07] MEDS: LINAGLIPTIN 5 MG TABLET PO (08:06)
[2018-04-07] MEDS: METOPROLOL (XL) 25 MG TAB PO ×2 (08:06→19:59)
[2018-04-07] MEDS: LISINOPRIL 5 MG TAB PO ×2 (08:06→19:59)
[2018-04-07] MEDS: ISOSORBIDE MONONITRATE(SR)30 MG TAB PO (08:06)
[2018-04-07] MEDS: INSULIN ASPART [NOVOLOG] 3 ML PEN SC ×7 (08:22→20:31)
[2018-04-07 12:11] LABS: FERRITIN 31.6 ng/ml (11.1-264.0)
[2018-04-07] MEDS: HYDROmorphONE 0.5 MG/0.5 ML SYG IV ×2 (13:38→23:57)
[2018-04-07 14:26] LABS: IMMEDIATE SPIN CROSSMATCH 1 2
[2018-04-07] MEDS: ONDANSETRON 4 MG INJ IV (16:49)
[2018-04-07] MEDS: ATORVASTATIN 40 MG TAB PO (19:56)
[2018-04-07] MEDS: INSULIN GLARGINE [LANTus] (100 UNITS/ML) SYG SC (20:31)
[2018-04-08] MEDS: HALOPERIDOL 5 MG INJ IM (05:28)
[2018-04-08] MEDS: PANTOPRAZOLE (EC) 40 MG TAB PO ×2 (05:28→08:37)
[2018-04-08] MEDS ORDERED: HALOPERIDOL 5 MG INJ IM (07:00)
[2018-04-08] MEDS: INSULIN ASPART [NOVOLOG] 3 ML PEN SC ×7 (07:41→20:20)
[2018-04-08] MEDS: METOPROLOL (XL) 25 MG TAB PO ×2 (08:36→20:20)
[2018-04-08] MEDS: CLOPIDOGREL 75 MG TAB PO (08:36)
[2018-04-08] MEDS: ISOSORBIDE MONONITRATE(SR)30 MG TAB PO (08:36)
[2018-04-08] MEDS: LINAGLIPTIN 5 MG TABLET PO (08:36)
[2018-04-08] MEDS: ASPIRIN (EC) 81 MG TAB PO (08:37)
[2018-04-08] MEDS: LISINOPRIL 5 MG TAB PO ×2 (08:37→20:20)
[2018-04-08 11:32] LABS: ALANINE AMINOTRANSFERASE 11 IU/L (13-69); ALBUMIN 3.4 g/dl (3.3-4.9); ALKALINE PHOSPHATASE 99 IU/L (42-121); ANION GAP 12 (5-13); ASPARTATE AMINO TRANSFERASE 19 IU/L (15-46); BILIRUBIN,INDIRECT 0.3 mg/dl (0-1.1); BILIRUBIN,TOTAL 0.3 mg/dl (0.2-1.3); BLOOD UREA NITROGEN 17 mg/dl (7-20); CARBON DIOXIDE 22 mmol/L (21-31); CHLORIDE 97 mmol/L (97-110); CREATININE 0.79 mg/dl (0.44-1.00); GLUCOSE 244 mg/dl (70-220); POTASSIUM 4.3 mmol/L (3.5-5.1); SODIUM 131 mmol/L (135-144)
[2018-04-08] MEDS: ACETAMINOPHEN 325 MG TAB PO ×2 (11:47→20:21)
[2018-04-08] MEDS ORDERED: INSULIN ASPART [NOVOLOG] 3 ML PEN SC (12:00)
[2018-04-08 12:08] LABS: ADD MAN DIFF? NO
[2018-04-08 12:11] LABS: BASOPHILS % 0.2 % (0.0-2.0); HEMATOCRIT 30.5 % (37.0-47.0); HEMOGLOBIN 9.9 g/dl (12.0-16.0); LYMPHOCYTES # 1.4 10^3/ul (0.8-2.9); LYMPHOCYTES % 11.3 % (15.0-51.0); MEAN CORPUSCULAR HEMOGLOBIN 26.2 pg (29.0-33.0); MEAN CORPUSCULAR HGB CONC 32.5 g/dl (32.0-37.0); MEAN CORPUSCULAR VOLUME 80.7 fl (82.0-101.0); MEAN PLATELET VOLUME 9.8 fl (7.4-10.4); MONOCYTES % 8.2 % (0.0-11.0); NEUTROPHIL # 10.1 10^3/ul (1.6-7.5); NEUTROPHILS % 79.8 % (39.0-77.0); PLATELET COUNT 374 10^3/UL (140-415); RED BLOOD COUNT 3.78 10^6/ul (4.20-5.40); RED CELL DISTRIBUTION WIDTH 15.8 % (11.5-14.5)
[2018-04-08 12:11] LABS: WHITE BLOOD COUNT 12.7 10^3/ul (4.8-10.8)
[2018-04-08] MEDS: ONDANSETRON 4 MG INJ IV (19:06)
[2018-04-08] MEDS: ATORVASTATIN 40 MG TAB PO (20:19)
[2018-04-08] MEDS: INSULIN GLARGINE [LANTus] (100 UNITS/ML) SYG SC (20:37)
[2018-04-09] MEDS: PANTOPRAZOLE (EC) 40 MG TAB PO ×2 (06:00→08:16)
[2018-04-09] MEDS: DEXTROSE 50% 50 ML SYRINGE IV (07:48)
[2018-04-09] MEDS: INSULIN ASPART [NOVOLOG] 3 ML PEN SC ×7 (07:51→20:21)
[2018-04-09] MEDS: ASPIRIN (EC) 81 MG TAB PO (08:14)
[2018-04-09] MEDS: ISOSORBIDE MONONITRATE(SR)30 MG TAB PO (08:15)
[2018-04-09] MEDS: LINAGLIPTIN 5 MG TABLET PO (08:16)
[2018-04-09] MEDS: LISINOPRIL 5 MG TAB PO ×2 (08:17→20:06)
[2018-04-09] MEDS: METOPROLOL (XL) 25 MG TAB PO ×2 (08:17→20:06)
[2018-04-09] MEDS: ACETAMINOPHEN 325 MG TAB PO ×2 (08:18→20:05)
[2018-04-09] MEDS: CLOPIDOGREL 75 MG TAB PO (09:16)
[2018-04-09] MEDS ORDERED: DEXTROSE 5% 1,000 ML IV (11:00)
[2018-04-09] MEDS: ATORVASTATIN 40 MG TAB PO (20:06)
[2018-04-09] MEDS: INSULIN GLARGINE [LANTus] (100 UNITS/ML) SYG SC (20:21)
[2018-04-10] MEDS: ACETAMINOPHEN 325 MG TAB PO ×3 (01:53→20:53)
[2018-04-10] MEDS: PANTOPRAZOLE (EC) 40 MG TAB PO ×2 (05:50→09:25)
[2018-04-10] MEDS ORDERED: CEFAZOLIN 1 GM INJ (07:00)
[2018-04-10] MEDS ORDERED: PROPOFOL 200 MG INJ (07:00)
[2018-04-10] MEDS: INSULIN ASPART [NOVOLOG] 3 ML PEN SC ×7 (07:53→21:05)
[2018-04-10] MEDS: LINAGLIPTIN 5 MG TABLET PO ×2 (09:00→09:27)
[2018-04-10] MEDS: ASPIRIN (EC) 81 MG TAB PO (09:25)
[2018-04-10] MEDS: CLOPIDOGREL 75 MG TAB PO (09:25)
[2018-04-10] MEDS: LISINOPRIL 5 MG TAB PO ×2 (09:26→20:44)
[2018-04-10] MEDS: ISOSORBIDE MONONITRATE(SR)30 MG TAB PO (09:26)
[2018-04-10] MEDS: METOPROLOL (XL) 25 MG TAB PO ×2 (09:27→20:44)
[2018-04-10] MEDS ORDERED: ETOMIDATE 20 MG INJ (10:59)
[2018-04-10] MEDS ORDERED: MIDAZOLAM 1 MG/ML 2 ML INJ (10:59)
[2018-04-10] MEDS ORDERED: FENTAnyl 50 MCG/ML VIAL (10:59)
[2018-04-10] MEDS ORDERED: ONDANSETRON 4 MG INJ (11:41)
[2018-04-10] MEDS ORDERED: METOCLOPRAMIDE 10 MG INJ (11:41)
[2018-04-10] MEDS ORDERED: EPHEDrine SULFATE 50 MG/5 ML SYG (11:44)
[2018-04-10] MEDS ORDERED: ONDANSETRON 4 MG INJ IV (12:00)
[2018-04-10] MEDS ORDERED: HYDROmorphONE 1 MG/5 ML IV SYRINGE IV ×3 (12:00)
[2018-04-10] MEDS: LIDOCAINE 1% (STERILE-PAK) 30 ML INJ (12:03)
[2018-04-10] MEDS: POLYMYXIN/BACITRACIN 1L IRRIG (12:04)
[2018-04-10 19:06] LABS: ADD MAN DIFF? NO
[2018-04-10 19:08] LABS: BASOPHILS % 0.2 % (0.0-2.0); HEMATOCRIT 32.7 % (37.0-47.0); HEMOGLOBIN 10.2 g/dl (12.0-16.0); LYMPHOCYTES # 1.6 10^3/ul (0.8-2.9); LYMPHOCYTES % 15.7 % (15.0-51.0); MEAN CORPUSCULAR HEMOGLOBIN 25.8 pg (29.0-33.0); MEAN CORPUSCULAR HGB CONC 31.2 g/dl (32.0-37.0); MEAN CORPUSCULAR VOLUME 82.6 fl (82.0-101.0); MEAN PLATELET VOLUME 9.4 fl (7.4-10.4); MONOCYTE # 0.8 10^3/ul (0.3-0.9); MONOCYTES % 8.1 % (0.0-11.0); NEUTROPHIL # 7.9 10^3/ul (1.6-7.5); NEUTROPHILS % 75.6 % (39.0-77.0); PLATELET COUNT 389 10^3/UL (140-415); RED BLOOD COUNT 3.96 10^6/ul (4.20-5.40); RED CELL DISTRIBUTION WIDTH 16.2 % (11.5-14.5)
[2018-04-10 19:08] LABS: WHITE BLOOD COUNT 10.4 10^3/ul (4.8-10.8)
[2018-04-10] MEDS: ATORVASTATIN 40 MG TAB PO (20:44)
[2018-04-10] MEDS: INSULIN GLARGINE [LANTus] (100 UNITS/ML) SYG SC (21:02)
[2018-04-11] MEDS: ACETAMINOPHEN 325 MG TAB PO ×4 (02:37→22:59)
[2018-04-11] MEDS: INSULIN ASPART [NOVOLOG] 3 ML PEN SC ×7 (08:01→20:23)
[2018-04-11] MEDS: CLOPIDOGREL 75 MG TAB PO (09:47)
[2018-04-11] MEDS: LISINOPRIL 5 MG TAB PO ×2 (09:47→20:22)
[2018-04-11] MEDS: ISOSORBIDE MONONITRATE(SR)30 MG TAB PO (09:47)
[2018-04-11] MEDS: METOPROLOL (XL) 25 MG TAB PO ×2 (09:47→20:22)
[2018-04-11] MEDS: ASPIRIN (EC) 81 MG TAB PO (09:48)
[2018-04-11] MEDS: LINAGLIPTIN 5 MG TABLET PO (09:48)
[2018-04-11] MEDS: POLYETHYLENE GLYCOL 17 GM PACKET PO (18:11)
[2018-04-11] MEDS: ATORVASTATIN 40 MG TAB PO (20:15)
[2018-04-11] MEDS: INSULIN GLARGINE [LANTus] (100 UNITS/ML) SYG SC (21:02)
[2018-04-11] MEDS: HYDROmorphONE 0.5 MG/0.5 ML SYG IV (22:59)
[2018-04-12] MEDS: HYDROmorphONE 0.5 MG/0.5 ML SYG IV ×3 (04:35→20:36)
[2018-04-12] MEDS: ACETAMINOPHEN 325 MG TAB PO (04:35)
[2018-04-12] MEDS: PANTOPRAZOLE (EC) 40 MG TAB PO (04:37)
[2018-04-12 05:38] LABS: ADD MAN DIFF? NO
[2018-04-12 05:40] LABS: BASOPHILS % 0.3 % (0.0-2.0); HEMATOCRIT 31.5 % (37.0-47.0); HEMOGLOBIN 9.9 g/dl (12.0-16.0); LYMPHOCYTES # 2.1 10^3/ul (0.8-2.9); LYMPHOCYTES % 17.7 % (15.0-51.0); MEAN CORPUSCULAR HEMOGLOBIN 25.5 pg (29.0-33.0); MEAN CORPUSCULAR HGB CONC 31.4 g/dl (32.0-37.0); MEAN CORPUSCULAR VOLUME 81.2 fl (82.0-101.0); MEAN PLATELET VOLUME 9.3 fl (7.4-10.4); MONOCYTE # 1.3 10^3/ul (0.3-0.9); MONOCYTES % 11.4 % (0.0-11.0); NEUTROPHIL # 8.2 10^3/ul (1.6-7.5); NEUTROPHILS % 70.3 % (39.0-77.0); PLATELET COUNT 408 10^3/UL (140-415); RED BLOOD COUNT 3.88 10^6/ul (4.20-5.40); RED CELL DISTRIBUTION WIDTH 16.1 % (11.5-14.5)
[2018-04-12 05:40] LABS: WHITE BLOOD COUNT 11.6 10^3/ul (4.8-10.8)
[2018-04-12] MEDS: INSULIN ASPART [NOVOLOG] 3 ML PEN SC ×7 (07:26→20:43)
[2018-04-12 07:39] LABS: ANION GAP 9 (5-13); BLOOD UREA NITROGEN 8 mg/dl (7-20); CALCIUM 8.7 mg/dl (8.4-10.2); CARBON DIOXIDE 25 mmol/L (21-31); CHLORIDE 103 mmol/L (97-110); CREATININE 0.67 mg/dl (0.44-1.00); GLUCOSE 64 mg/dl (70-220); SODIUM 137 mmol/L (135-144)
[2018-04-12] MEDS: CLOPIDOGREL 75 MG TAB PO (09:34)
[2018-04-12] MEDS: ASPIRIN (EC) 81 MG TAB PO (09:34)
[2018-04-12] MEDS: METOPROLOL (XL) 25 MG TAB PO ×2 (09:34→20:35)
[2018-04-12] MEDS: LISINOPRIL 5 MG TAB PO ×2 (09:34→20:35)
[2018-04-12] MEDS: LINAGLIPTIN 5 MG TABLET PO (09:34)
[2018-04-12] MEDS: ISOSORBIDE MONONITRATE(SR)30 MG TAB PO (09:35)
[2018-04-12] MEDS: POLYETHYLENE GLYCOL 17 GM PACKET PO (09:46)
[2018-04-12] MEDS: ATORVASTATIN 40 MG TAB PO (20:34)
[2018-04-12] MEDS: INSULIN GLARGINE [LANTus] (100 UNITS/ML) SYG SC (20:50)
[2018-04-13] MEDS: HYDROmorphONE 0.5 MG/0.5 ML SYG IV ×3 (02:07→12:38)
[2018-04-13] MEDS: PANTOPRAZOLE (EC) 40 MG TAB PO (05:41)
[2018-04-13] MEDS: INSULIN ASPART [NOVOLOG] 3 ML PEN SC ×4 (08:00→12:48)
[2018-04-13] MEDS: LINAGLIPTIN 5 MG TABLET PO (08:35)
[2018-04-13] MEDS: CLOPIDOGREL 75 MG TAB PO (08:35)
[2018-04-13] MEDS: LISINOPRIL 5 MG TAB PO (08:36)
[2018-04-13] MEDS: METOPROLOL (XL) 25 MG TAB PO (08:36)
[2018-04-13] MEDS: ISOSORBIDE MONONITRATE(SR)30 MG TAB PO (08:36)
[2018-04-13] MEDS: ASPIRIN (EC) 81 MG TAB PO (08:37)
== END 2018-04-13 14:36 | DRG 239 ==
LOC: REC 14:36 → 6WM 17:23
PROVIDERS: Podiatrist Foot & Ankle Surgery
PROC: 0Y6N0Z9 Detachment at Left Foot, Partial 1st Ray, Open Approach (ICD-10-PCS; principal; 2018-04-10 10:30)
PROC: 0Y6N0ZB Detachment at Left Foot, Partial 2nd Ray, Open Approach (ICD-10-PCS; 2018-04-10 10:30)
PROC: 0Y6N0ZC Detachment at Left Foot, Partial 3rd Ray, Open Approach (ICD-10-PCS; 2018-04-10 10:30)
PROC: 0Y6N0ZD Detachment at Left Foot, Partial 4th Ray, Open Approach (ICD-10-PCS; 2018-04-10 10:30)
PROC: 0Y6N0ZF Detachment at Left Foot, Partial 5th Ray, Open Approach (ICD-10-PCS; 2018-04-10 10:30)
DX: E11.52 Type 2 diabetes mellitus with diabetic peripheral angiopathy with gangrene (principal); I50.23 Acute on chronic systolic (congestive) heart failure; I96 Gangrene, not elsewhere classified; E11.42 Type 2 diabetes mellitus with diabetic polyneuropathy; E11.65 Type 2 diabetes mellitus with hyperglycemia; I11.0 Hypertensive heart disease with heart failure; D64.9 Anemia, unspecified; I25.10 Atherosclerotic heart disease of native coronary artery without angina pectoris; F03.90 Unspecified dementia, unspecified severity, without behavioral disturbance, psychotic disturbance, mood disturbance, and anxiety; Z95.810 Presence of automatic (implantable) cardiac defibrillator; Z95.5 Presence of coronary angioplasty implant and graft
CPT/HCPCS: 36430; 80048; 80053; 82728; 82962; 83036; 83540; 85025; 85610; 85730; 86850; 86870; 86900; 86901; 86920; 87070; 87075; 87081; 87102; 88304; 88311; 93308

== ENCOUNTER 2018-05-12 14:17 | Inpatient (IN) | payer MEDICARE, OTHER ==
[~2018-05-12 14:17] MED LIST: LIDOCAINE 1% (MPF) 5 ML VIAL INJ; PHENYLephrine (100 MCG/ML) 5ML SYG IV; PROPOFOL 200 MG INJ IV
[2018-05-12 15:27] LABS: ADD MAN DIFF? NO
[2018-05-12 15:30] LABS: WHITE BLOOD COUNT 10.2 10^3/ul (4.8-10.8)
[2018-05-12 15:30] LABS: BASOPHILS % 0.4 % (0.0-2.0); HEMATOCRIT 25.3 % (37.0-47.0); LYMPHOCYTES # 1.5 10^3/ul (0.8-2.9); LYMPHOCYTES % 14.6 % (15.0-51.0); MEAN CORPUSCULAR HEMOGLOBIN 24.8 pg (29.0-33.0); MEAN CORPUSCULAR HGB CONC 31.6 g/dl (32.0-37.0); MEAN CORPUSCULAR VOLUME 78.3 fl (82.0-101.0); MEAN PLATELET VOLUME 8.4 fl (7.4-10.4); MONOCYTE # 0.7 10^3/ul (0.3-0.9); MONOCYTES % 6.4 % (0.0-11.0); PLATELET COUNT 544 10^3/UL (140-415); RED BLOOD COUNT 3.23 10^6/ul (4.20-5.40); RED CELL DISTRIBUTION WIDTH 17.8 % (11.5-14.5)
[2018-05-12 15:34] LABS: HOLD TRANSMISSIONS 1
[2018-05-12 15:44] LABS: POTASSIUM 4.4 mmol/L (3.5-5.1)
[2018-05-12 15:48] LABS: INR 1.35; PROTIME 16.9 Sec (11.9-14.9); PT RATIO 1.3
[2018-05-12] MEDS ORDERED: ONDANSETRON 4 MG INJ IV (18:00)
[2018-05-12] MEDS ORDERED: ALBUTEROL 0.083% (NEB) 2.5 MG/3 ML AMP HHN (18:00)
[2018-05-12] MEDS ORDERED: HYDROmorphONE 1 MG/5 ML IV SYRINGE IV ×2 (18:00)
[2018-05-12] MEDS ORDERED: DIPHENHYDRAMINE 50 MG INJ IV (18:00)
[2018-05-12] MEDS ORDERED: METOCLOPRAMIDE 10 MG INJ IV (18:00)
[2018-05-12] MEDS ORDERED: MEPERIDINE 25 MG INJ IV (18:00)
[2018-05-12] MEDS ORDERED: FENTAnyl 50 MCG/ML VIAL IV ×2 (18:00)
[2018-05-12] MEDS ORDERED: FENTAnyl 50 MCG/ML VIAL (18:17)
[2018-05-12] MEDS ORDERED: LIDOCAINE 1% (MPF) 30 ML INJ (18:21)
[2018-05-12] MEDS ORDERED: VANCOMYCIN 1 GM INJ (18:33)
[2018-05-12] MEDS ORDERED: METHYLENE BLUE 1% 10 ML INJ (18:42)
[2018-05-12] MEDS ORDERED: VANCOMYCIN 1.25 GM in SOD CHLORIDE 0.9% 250 ML IVPB (20:30)
[2018-05-12 21:42] LABS: CREATININE 0.72 mg/dl (0.44-1.00)
[2018-05-12 21:42] LABS: BLOOD UREA NITROGEN 16 mg/dl (7-20)
[2018-05-12] MEDS: HYDROmorphONE 0.5 MG/0.5 ML SYG IV (21:44)
[2018-05-12] MEDS: FAMOTIDINE 20 MG INJ IV (21:44)
[2018-05-12] MEDS: ONDANSETRON 4 MG INJ IV (21:44)
[2018-05-12] MEDS: VANCOMYCIN 1 GM 250 ML IVPB (21:45)
[2018-05-12] MEDS ORDERED: GLUCOSE GEL 15 GRAM TUBE PO ×2 (22:30)
[2018-05-12] MEDS ORDERED: DEXTROSE 50% 50 ML SYRINGE IV ×2 (22:30)
[2018-05-12] MEDS ORDERED: GLUCOSE GEL 15 GRAM TUBE BUCCAL (22:30)
[2018-05-12] MEDS ORDERED: GLUCAGON 1 MG INJ IM (22:30)
[2018-05-12] MEDS ORDERED: HYDROCODONE/APAP (5/325) TAB PO (23:00)
[2018-05-12] MEDS: morphine SULFATE/PF (2 MG/2 ML) SYG IV (23:16)
[2018-05-12] MEDS: morphine 4 MG/ML VIAL IV (23:16)
[2018-05-12 23:17] LABS: HEMATOCRIT 22.8 % (37.0-47.0); HEMOGLOBIN 7.1 g/dl (12.0-16.0)
[2018-05-13] MEDS: ACCU-CHEK XX (00:22)
[2018-05-13 00:58] LABS: AHG CROSSMATCH 1 6
[2018-05-13] MEDS: HYDROmorphONE 0.5 MG/0.5 ML SYG IV ×2 (03:02→06:21)
[2018-05-13] MEDS: ONDANSETRON 4 MG INJ IV (06:21)
[2018-05-13] MEDS: FAMOTIDINE 20 MG INJ IV (08:32)
[2018-05-13] MEDS: LISINOPRIL 5 MG TAB PO ×2 (08:33→20:34)
[2018-05-13] MEDS: INSULIN ASPART [NOVOLOG] 3 ML PEN SC ×5 (08:34→20:32)
[2018-05-13 11:19] LABS: ADD MAN DIFF? NO
[2018-05-13 11:27] LABS: ABNORMAL IP MESSAGE 1; BASOPHIL # 0.1 10^3/ul (0.0-0.1); BASOPHILS % 0.2 % (0.0-2.0); HEMATOCRIT 29.2 % (37.0-47.0); HEMOGLOBIN 9.6 g/dl (12.0-16.0); LYMPHOCYTES # 0.6 10^3/ul (0.8-2.9); LYMPHOCYTES % 2.8 % (15.0-51.0); MEAN CORPUSCULAR HEMOGLOBIN 27.5 pg (29.0-33.0); MEAN CORPUSCULAR HGB CONC 32.9 g/dl (32.0-37.0); MEAN CORPUSCULAR VOLUME 83.7 fl (82.0-101.0); MEAN PLATELET VOLUME 8.9 fl (7.4-10.4); MONOCYTE # 0.5 10^3/ul (0.3-0.9); MONOCYTES % 2.7 % (0.0-11.0); NEUTROPHIL # 18.7 10^3/ul (1.6-7.5); NEUTROPHILS % 93.7 % (39.0-77.0); PLATELET COUNT 422 10^3/UL (140-415); RED BLOOD COUNT 3.49 10^6/ul (4.20-5.40); RED CELL DISTRIBUTION WIDTH 16.8 % (11.5-14.5)
[2018-05-13] MEDS: HYDROCODONE/APAP (5/325) TAB PO (11:27)
[2018-05-13 11:42] LABS: POSITIVE DIFF @See below
[2018-05-13 11:49] LABS: ALANINE AMINOTRANSFERASE 10 IU/L (13-69); ALBUMIN 2.9 g/dl (3.3-4.9); ALBUMIN/GLOBULIN RATIO 0.96; ALKALINE PHOSPHATASE 84 IU/L (42-121); ANION GAP 17 (5-13); ASPARTATE AMINO TRANSFERASE 21 IU/L (15-46); BILIRUBIN,INDIRECT 0.9 mg/dl (0-1.1); BILIRUBIN,TOTAL 0.9 mg/dl (0.2-1.3); BLOOD UREA NITROGEN 20 mg/dl (7-20); CALCIUM 8.5 mg/dl (8.4-10.2); CARBON DIOXIDE 15 mmol/L (21-31); CHLORIDE 99 mmol/L (97-110); CREATININE 0.82 mg/dl (0.44-1.00); GLUCOSE 364 mg/dl (70-220); POTASSIUM 5.5 mmol/L (3.5-5.1); SODIUM 131 mmol/L (135-144); TOTAL PROTEIN 5.9 g/dl (6.1-8.1)
[2018-05-13 15:37] LABS: HEMOGLOBIN A1C 6.3 % (0-5.9)
[2018-05-13] MEDS ORDERED: INSULIN ASPART [NOVOLOG] 3 ML PEN SC (17:35)
[2018-05-13] MEDS: PIPER-TAZO 3.375 GM IV (PMX) 100 ML IVPB (17:43)
[2018-05-13] MEDS: SOD CHLORIDE 0.9% 500 ML IV (18:33)
[2018-05-13] MEDS: ATORVASTATIN 40 MG TAB PO (20:31)
[2018-05-13] MEDS: METOPROLOL (XL) 25 MG TAB PO (20:31)
[2018-05-13] MEDS: INSULIN GLARGINE [LANTus] (100 UNITS/ML) SYG SC (20:33)
[2018-05-13] MEDS: VANCOMYCIN 1 GM 250 ML IVPB (20:33)
[2018-05-14] MEDS: PIPER-TAZO 3.375 GM IV (PMX) 100 ML IVPB ×5 (00:03→23:53)
[2018-05-14] MEDS: ACCU-CHEK XX (01:35)
[2018-05-14] MEDS: PANTOPRAZOLE (EC) 40 MG TAB PO (05:40)
[2018-05-14 05:43] LABS: ADD MAN DIFF? NO
[2018-05-14 05:47] LABS: BASOPHIL # 0.1 10^3/ul (0.0-0.1); BASOPHILS % 0.4 % (0.0-2.0); EOSINOPHILS % 0.1 % (0.0-7.0); HEMATOCRIT 24.8 % (37.0-47.0); HEMOGLOBIN 8.3 g/dl (12.0-16.0); LYMPHOCYTES # 1.7 10^3/ul (0.8-2.9); LYMPHOCYTES % 10.9 % (15.0-51.0); MEAN CORPUSCULAR HEMOGLOBIN 27.4 pg (29.0-33.0); MEAN CORPUSCULAR HGB CONC 33.5 g/dl (32.0-37.0); MEAN CORPUSCULAR VOLUME 81.8 fl (82.0-101.0); MEAN PLATELET VOLUME 8.6 fl (7.4-10.4); MONOCYTE # 1.2 10^3/ul (0.3-0.9); MONOCYTES % 7.9 % (0.0-11.0); NEUTROPHIL # 12.7 10^3/ul (1.6-7.5); NEUTROPHILS % 80.2 % (39.0-77.0); NUCLEATED RED BLOOD CELLS% 0.1 /100WBC (0.0-0.0); PLATELET COUNT 371 10^3/UL (140-415); RED BLOOD COUNT 3.03 10^6/ul (4.20-5.40); RED CELL DISTRIBUTION WIDTH 17.3 % (11.5-14.5)
[2018-05-14 05:47] LABS: WHITE BLOOD COUNT 15.8 10^3/ul (4.8-10.8)
[2018-05-14 06:28] LABS: ANION GAP 11 (5-13); BLOOD UREA NITROGEN 20 mg/dl (7-20); CALCIUM 8.4 mg/dl (8.4-10.2); CARBON DIOXIDE 19 mmol/L (21-31); CHLORIDE 103 mmol/L (97-110); CREATININE 0.83 mg/dl (0.44-1.00); GLUCOSE 263 mg/dl (70-220); MAGNESIUM 1.6 mg/dl (1.7-2.5); PHOSPHORUS 3.1 mg/dl (2.5-4.9); POTASSIUM 4.7 mmol/L (3.5-5.1); SODIUM 133 mmol/L (135-144)
[2018-05-14] MEDS: INSULIN ASPART [NOVOLOG] 3 ML PEN SC ×7 (08:20→21:00)
[2018-05-14] MEDS: METOPROLOL (XL) 25 MG TAB PO ×2 (08:22→20:38)
[2018-05-14] MEDS: CLOPIDOGREL 75 MG TAB PO (08:22)
[2018-05-14] MEDS: LISINOPRIL 5 MG TAB PO ×2 (08:22→20:38)
[2018-05-14] MEDS: ASPIRIN (EC) 81 MG TAB PO (08:22)
[2018-05-14] MEDS: ISOSORBIDE MONONITRATE(SR)30 MG TAB PO (08:23)
[2018-05-14] MEDS: LINAGLIPTIN 5 MG TABLET PO (12:13)
[2018-05-14 12:44] LABS: HEMATOCRIT 23.9 % (37.0-47.0); HEMOGLOBIN 7.9 g/dl (12.0-16.0)
[2018-05-14] MEDS: MAGNESIUM SULFATE 2 GM/50 ML 50 ML IVPB (13:29)
[2018-05-14] MEDS: ACETAMINOPHEN 325 MG TAB PO ×2 (18:36→21:53)
[2018-05-14] MEDS: ATORVASTATIN 40 MG TAB PO (20:37)
[2018-05-14] MEDS: VANCOMYCIN 1 GM 250 ML IVPB (20:39)
[2018-05-14] MEDS: INSULIN GLARGINE [LANTus] (100 UNITS/ML) SYG SC (20:40)
[2018-05-14 20:57] LABS: HEMATOCRIT 23.5 % (37.0-47.0); HEMOGLOBIN 7.5 g/dl (12.0-16.0)
[2018-05-15] MEDS: ACCU-CHEK XX (02:00)
[2018-05-15 05:18] LABS: ADD MAN DIFF? NO; BASOPHIL # 0.1 10^3/ul (0.0-0.1); BASOPHILS % 0.5 % (0.0-2.0); EOSINOPHILS # 0.1 10^3/ul (0.0-0.5); EOSINOPHILS % 0.4 % (0.0-7.0); HEMATOCRIT 23.5 % (37.0-47.0); HEMOGLOBIN 7.8 g/dl (12.0-16.0); LYMPHOCYTES # 2.2 10^3/ul (0.8-2.9); LYMPHOCYTES % 18.5 % (15.0-51.0); MEAN CORPUSCULAR HEMOGLOBIN 27.5 pg (29.0-33.0); MEAN CORPUSCULAR HGB CONC 33.2 g/dl (32.0-37.0); MEAN CORPUSCULAR VOLUME 82.7 fl (82.0-101.0); MEAN PLATELET VOLUME 8.9 fl (7.4-10.4); MONOCYTE # 0.9 10^3/ul (0.3-0.9); MONOCYTES % 7.6 % (0.0-11.0); NEUTROPHIL # 8.6 10^3/ul (1.6-7.5); NEUTROPHILS % 72.5 % (39.0-77.0); PLATELET COUNT 353 10^3/UL (140-415); RED BLOOD COUNT 2.84 10^6/ul (4.20-5.40); RED CELL DISTRIBUTION WIDTH 18.1 % (11.5-14.5)
[2018-05-15 05:18] LABS: WHITE BLOOD COUNT 11.9 10^3/ul (4.8-10.8)
[2018-05-15] MEDS: PANTOPRAZOLE (EC) 40 MG TAB PO (05:31)
[2018-05-15] MEDS: PIPER-TAZO 3.375 GM IV (PMX) 100 ML IVPB ×2 (05:31→11:24)
[2018-05-15 05:43] LABS: MAGNESIUM 2.2 mg/dl (1.7-2.5)
[2018-05-15 05:56] LABS: ALANINE AMINOTRANSFERASE 12 IU/L (13-69); ALBUMIN 2.4 g/dl (3.3-4.9); ALBUMIN/GLOBULIN RATIO 0.88; ALKALINE PHOSPHATASE 91 IU/L (42-121); ANION GAP 8 (5-13); ASPARTATE AMINO TRANSFERASE 21 IU/L (15-46); BILIRUBIN,INDIRECT 0.1 mg/dl (0-1.1); BILIRUBIN,TOTAL 0.1 mg/dl (0.2-1.3); BLOOD UREA NITROGEN 17 mg/dl (7-20); CALCIUM 8.1 mg/dl (8.4-10.2); CARBON DIOXIDE 21 mmol/L (21-31); CHLORIDE 104 mmol/L (97-110); CREATININE 0.88 mg/dl (0.44-1.00); GLUCOSE 122 mg/dl (70-220); SODIUM 133 mmol/L (135-144); TOTAL PROTEIN 5.1 g/dl (6.1-8.1)
[2018-05-15] MEDS: INSULIN ASPART [NOVOLOG] 3 ML PEN SC ×7 (08:01→20:41)
[2018-05-15] MEDS: LINAGLIPTIN 5 MG TABLET PO (08:13)
[2018-05-15] MEDS: ISOSORBIDE MONONITRATE(SR)30 MG TAB PO (08:13)
[2018-05-15] MEDS: LISINOPRIL 5 MG TAB PO ×2 (08:13→20:39)
[2018-05-15] MEDS: METOPROLOL (XL) 25 MG TAB PO ×2 (08:14→20:39)
[2018-05-15] MEDS: ACETAMINOPHEN 325 MG TAB PO ×3 (10:01→22:45)
[2018-05-15] MEDS: CEFEPIME 1GM/50 ML (PMX) 50 ML IVPB (20:37)
[2018-05-15] MEDS: ATORVASTATIN 40 MG TAB PO (20:38)
[2018-05-15] MEDS: INSULIN GLARGINE [LANTus] (100 UNITS/ML) SYG SC (20:40)
[2018-05-15] MEDS: VANCOMYCIN 1 GM 250 ML IVPB (21:56)
[2018-05-15] MEDS: ZOLPIDEM 5 MG TAB PO (22:02)
[2018-05-16] MEDS: ACCU-CHEK XX (01:39)
[2018-05-16] MEDS: PANTOPRAZOLE (EC) 40 MG TAB PO ×2 (05:50→05:52)
[2018-05-16 06:00] LABS: ADD MAN DIFF? NO
[2018-05-16 06:07] LABS: WHITE BLOOD COUNT 8.8 10^3/ul (4.8-10.8)
[2018-05-16 06:07] LABS: BASOPHIL # 0.1 10^3/ul (0.0-0.1); BASOPHILS % 0.7 % (0.0-2.0); EOSINOPHILS % 0.3 % (0.0-7.0); HEMATOCRIT 24.1 % (37.0-47.0); HEMOGLOBIN 7.8 g/dl (12.0-16.0); LYMPHOCYTES # 1.9 10^3/ul (0.8-2.9); LYMPHOCYTES % 21.3 % (15.0-51.0); MEAN CORPUSCULAR HEMOGLOBIN 27.1 pg (29.0-33.0); MEAN CORPUSCULAR HGB CONC 32.4 g/dl (32.0-37.0); MEAN CORPUSCULAR VOLUME 83.7 fl (82.0-101.0); MEAN PLATELET VOLUME 9.2 fl (7.4-10.4); MONOCYTE # 0.6 10^3/ul (0.3-0.9); MONOCYTES % 7.2 % (0.0-11.0); NEUTROPHIL # 6.2 10^3/ul (1.6-7.5); NEUTROPHILS % 70.2 % (39.0-77.0); PLATELET COUNT 375 10^3/UL (140-415); RED BLOOD COUNT 2.88 10^6/ul (4.20-5.40); RED CELL DISTRIBUTION WIDTH 18.1 % (11.5-14.5)
[2018-05-16 06:46] LABS: ANION GAP 10 (5-13); BLOOD UREA NITROGEN 14 mg/dl (7-20); CALCIUM 8.1 mg/dl (8.4-10.2); CARBON DIOXIDE 22 mmol/L (21-31); CHLORIDE 102 mmol/L (97-110); CREATININE 0.76 mg/dl (0.44-1.00); GLUCOSE 113 mg/dl (70-220); MAGNESIUM 1.9 mg/dl (1.7-2.5); PHOSPHORUS 3.2 mg/dl (2.5-4.9); POTASSIUM 3.8 mmol/L (3.5-5.1); SODIUM 134 mmol/L (135-144)
[2018-05-16] MEDS: INSULIN ASPART [NOVOLOG] 3 ML PEN SC ×7 (08:00→20:43)
[2018-05-16] MEDS: CEFEPIME 1GM/50 ML (PMX) 50 ML IVPB ×2 (08:43→20:40)
[2018-05-16] MEDS: METOPROLOL (XL) 25 MG TAB PO ×2 (08:44→20:42)
[2018-05-16] MEDS: ISOSORBIDE MONONITRATE(SR)30 MG TAB PO (08:44)
[2018-05-16] MEDS: LINAGLIPTIN 5 MG TABLET PO (08:44)
[2018-05-16] MEDS: LISINOPRIL 5 MG TAB PO ×2 (08:45→20:42)
[2018-05-16] MEDS: ACETAMINOPHEN 325 MG TAB PO ×3 (11:28→22:20)
[2018-05-16] MEDS: CLOPIDOGREL 75 MG TAB PO (12:54)
[2018-05-16] MEDS: ASPIRIN (EC) 81 MG TAB PO (12:54)
[2018-05-16] MEDS: DOCUSATE SODIUM 100 MG CAP PO (20:40)
[2018-05-16] MEDS: traZODone 50 MG TAB PO (20:40)
[2018-05-16] MEDS: ATORVASTATIN 40 MG TAB PO (20:40)
[2018-05-16] MEDS: INSULIN GLARGINE [LANTus] (100 UNITS/ML) SYG SC (20:43)
[2018-05-16] MEDS ORDERED: ZOLPIDEM 5 MG TAB PO (21:00)
[2018-05-16] MEDS: VANCOMYCIN 1.25 GM in SOD CHLORIDE 0.9% 250 ML IVPB (22:59)
[2018-05-17] MEDS: OXYCODONE/ACETAMINOPHEN (5/325) TAB PO ×2 (01:31→20:24)
[2018-05-17] MEDS: ACCU-CHEK XX ×2 (01:34→22:19)
[2018-05-17] MEDS: PANTOPRAZOLE (EC) 40 MG TAB PO (05:37)
[2018-05-17 05:59] LABS: ADD MAN DIFF? NO
[2018-05-17 06:04] LABS: WHITE BLOOD COUNT 8.1 10^3/ul (4.8-10.8)
[2018-05-17 06:04] LABS: BASOPHIL # 0.1 10^3/ul (0.0-0.1); BASOPHILS % 0.6 % (0.0-2.0); EOSINOPHILS % 0.5 % (0.0-7.0); HEMATOCRIT 25.9 % (37.0-47.0); HEMOGLOBIN 8.3 g/dl (12.0-16.0); LYMPHOCYTES # 1.6 10^3/ul (0.8-2.9); MEAN CORPUSCULAR HEMOGLOBIN 26.9 pg (29.0-33.0); MEAN CORPUSCULAR VOLUME 84.1 fl (82.0-101.0); MONOCYTE # 0.7 10^3/ul (0.3-0.9); MONOCYTES % 8.5 % (0.0-11.0); NEUTROPHIL # 5.7 10^3/ul (1.6-7.5); NEUTROPHILS % 69.9 % (39.0-77.0); PLATELET COUNT 408 10^3/UL (140-415); RED BLOOD COUNT 3.08 10^6/ul (4.20-5.40); RED CELL DISTRIBUTION WIDTH 18.4 % (11.5-14.5)
[2018-05-17 06:45] LABS: ANION GAP 9 (5-13); BLOOD UREA NITROGEN 10 mg/dl (7-20); CALCIUM 8.5 mg/dl (8.4-10.2); CARBON DIOXIDE 25 mmol/L (21-31); CHLORIDE 104 mmol/L (97-110); CREATININE 0.67 mg/dl (0.44-1.00); GLUCOSE 93 mg/dl (70-220); MAGNESIUM 1.9 mg/dl (1.7-2.5); PHOSPHORUS 3.3 mg/dl (2.5-4.9); POTASSIUM 4.2 mmol/L (3.5-5.1); SODIUM 138 mmol/L (135-144)
[2018-05-17] MEDS: INSULIN ASPART [NOVOLOG] 3 ML PEN SC ×7 (07:55→20:23)
[2018-05-17] MEDS: CEFEPIME 1GM/50 ML (PMX) 50 ML IVPB ×2 (08:02→20:23)
[2018-05-17] MEDS: LINAGLIPTIN 5 MG TABLET PO (08:02)
[2018-05-17] MEDS: DOCUSATE SODIUM 100 MG CAP PO ×2 (08:02→20:23)
[2018-05-17] MEDS: CLOPIDOGREL 75 MG TAB PO (08:03)
[2018-05-17] MEDS: ASPIRIN (EC) 81 MG TAB PO (08:03)
[2018-05-17] MEDS: ISOSORBIDE MONONITRATE(SR)30 MG TAB PO (08:05)
[2018-05-17] MEDS: LISINOPRIL 5 MG TAB PO ×2 (08:06→20:23)
[2018-05-17] MEDS: METOPROLOL (XL) 25 MG TAB PO ×2 (08:06→20:23)
[2018-05-17] MEDS: ACETAMINOPHEN 325 MG TAB PO ×2 (12:01→18:52)
[2018-05-17] MEDS: CEPASTAT LOZENGE MT (15:36)
[2018-05-17] MEDS: ATORVASTATIN 40 MG TAB PO (20:22)
[2018-05-17] MEDS: INSULIN GLARGINE [LANTus] (100 UNITS/ML) SYG SC (20:25)
[2018-05-17] MEDS: VANCOMYCIN 1.25 GM in SOD CHLORIDE 0.9% 250 ML IVPB (21:58)
[2018-05-17] MEDS: morphine SULFATE/PF (2 MG/2 ML) SYG IV (22:01)
[2018-05-18] MEDS: OXYCODONE/ACETAMINOPHEN (5/325) TAB PO ×2 (00:45→13:29)
[2018-05-18] MEDS: ZOLPIDEM 5 MG TAB PO (01:28)
[2018-05-18] MEDS: ONDANSETRON 4 MG INJ IV (01:28)
[2018-05-18] MEDS: PANTOPRAZOLE (EC) 40 MG TAB PO (05:01)
[2018-05-18 06:24] LABS: ADD MAN DIFF? NO
[2018-05-18 06:29] LABS: BASOPHIL # 0.1 10^3/ul (0.0-0.1); BASOPHILS % 0.7 % (0.0-2.0); EOSINOPHILS % 0.2 % (0.0-7.0); HEMOGLOBIN 8.2 g/dl (12.0-16.0); LYMPHOCYTES # 1.2 10^3/ul (0.8-2.9); LYMPHOCYTES % 13.3 % (15.0-51.0); MEAN CORPUSCULAR HEMOGLOBIN 26.7 pg (29.0-33.0); MEAN CORPUSCULAR HGB CONC 31.5 g/dl (32.0-37.0); MEAN CORPUSCULAR VOLUME 84.7 fl (82.0-101.0); MEAN PLATELET VOLUME 9.2 fl (7.4-10.4); MONOCYTE # 0.6 10^3/ul (0.3-0.9); NEUTROPHIL # 6.9 10^3/ul (1.6-7.5); NEUTROPHILS % 78.3 % (39.0-77.0); PLATELET COUNT 415 10^3/UL (140-415); RED BLOOD COUNT 3.07 10^6/ul (4.20-5.40); RED CELL DISTRIBUTION WIDTH 18.7 % (11.5-14.5)
[2018-05-18 06:29] LABS: WHITE BLOOD COUNT 8.8 10^3/ul (4.8-10.8)
[2018-05-18] MEDS: ASPIRIN (EC) 81 MG TAB PO (08:27)
[2018-05-18] MEDS: INSULIN ASPART [NOVOLOG] 3 ML PEN SC ×7 (08:30→20:23)
[2018-05-18] MEDS: METOPROLOL (XL) 25 MG TAB PO ×2 (08:30→20:09)
[2018-05-18] MEDS: LISINOPRIL 5 MG TAB PO ×2 (08:32→20:09)
[2018-05-18] MEDS: LINAGLIPTIN 5 MG TABLET PO (08:32)
[2018-05-18] MEDS: CLOPIDOGREL 75 MG TAB PO (08:32)
[2018-05-18] MEDS: ISOSORBIDE MONONITRATE(SR)30 MG TAB PO (08:32)
[2018-05-18] MEDS: DOCUSATE SODIUM 100 MG CAP PO ×2 (08:33→20:08)
[2018-05-18] MEDS: CEFEPIME 1GM/50 ML (PMX) 50 ML IVPB ×2 (08:33→20:06)
[2018-05-18] MEDS: hydrOXYzine PAMOATE 25 MG CAP PO (11:42)
[2018-05-18] MEDS: morphine SULFATE/PF (2 MG/2 ML) SYG IV (15:16)
[2018-05-18] MEDS: INSULIN GLARGINE [LANTus] (100 UNITS/ML) SYG SC (20:07)
[2018-05-18] MEDS: ATORVASTATIN 40 MG TAB PO (20:08)
[2018-05-18] MEDS: VANCOMYCIN 1.25 GM in SOD CHLORIDE 0.9% 250 ML IVPB (21:48)
[2018-05-19] MEDS: ACCU-CHEK XX (02:00)
[2018-05-19] MEDS: ACETAMINOPHEN 325 MG TAB PO ×2 (02:36→10:24)
[2018-05-19] MEDS: PANTOPRAZOLE (EC) 40 MG TAB PO (05:50)
[2018-05-19] MEDS: INSULIN ASPART [NOVOLOG] 3 ML PEN SC ×6 (07:35→17:32)
[2018-05-19] MEDS: LINAGLIPTIN 5 MG TABLET PO (08:22)
[2018-05-19] MEDS: DOCUSATE SODIUM 100 MG CAP PO (08:24)
[2018-05-19] MEDS: ASPIRIN (EC) 81 MG TAB PO (08:24)
[2018-05-19] MEDS: ISOSORBIDE MONONITRATE(SR)30 MG TAB PO (08:25)
[2018-05-19] MEDS: LISINOPRIL 5 MG TAB PO (08:25)
[2018-05-19] MEDS: CEFEPIME 1GM/50 ML (PMX) 50 ML IVPB (08:25)
[2018-05-19] MEDS: METOPROLOL (XL) 25 MG TAB PO (08:25)
[2018-05-19] MEDS: CLOPIDOGREL 75 MG TAB PO (08:26)
[2018-05-19] MEDS: ONDANSETRON 4 MG INJ IV (10:56)
[2018-05-19] MEDS: LIDOCAINE 1% (MPF) 5 ML VIAL SC (15:35)
[2018-05-19] MEDS: SOD CHLORIDE 0.9% 100 ML (16:20)
== END 2018-05-19 19:05 | DRG 854 ==
LOC: SDS 14:17 → PP2 05-14 05:30 → SDS 14:17 → PP2 20:53 → SDS 20:57 → REC 20:01 → PP2 21:01
PROVIDERS: Podiatrist Foot & Ankle Surgery
PROC: 0QBP0ZZ Excision of Left Metatarsal, Open Approach (ICD-10-PCS; principal; 2018-05-12 17:00)
PROC: 0YU Anatomical Regions, Lower Extremities, Supplement (ICD-10-PCS; 2018-05-12 17:00)
PROC: 30233N1 Transfusion of Nonautologous Red Blood Cells into Peripheral Vein, Percutaneous Approach (ICD-10-PCS; 2018-05-12 18:12)
PROC: 02HV33Z Insertion of Infusion Device into Superior Vena Cava, Percutaneous Approach (ICD-10-PCS; 2018-05-12 18:12)
PROC: B548ZZA Ultrasonography of Superior Vena Cava, Guidance (ICD-10-PCS; 2018-05-12 18:12)
DX: A41.9 Sepsis, unspecified organism (principal); E11.52 Type 2 diabetes mellitus with diabetic peripheral angiopathy with gangrene; I13.0 Hypertensive heart and chronic kidney disease with heart failure and stage 1 through stage 4 chronic kidney disease, or unspecified chronic kidney disease; I50.22 Chronic systolic (congestive) heart failure; M86.672 Other chronic osteomyelitis, left ankle and foot; D62 Acute posthemorrhagic anemia; E11.621 Type 2 diabetes mellitus with foot ulcer; E78.5 Hyperlipidemia, unspecified; I25.2 Old myocardial infarction; F03.90 Unspecified dementia, unspecified severity, without behavioral disturbance, psychotic disturbance, mood disturbance, and anxiety; E11.22 Type 2 diabetes mellitus with diabetic chronic kidney disease; N18.9 Chronic kidney disease, unspecified; D63.1 Anemia in chronic kidney disease; Z89.432 Acquired absence of left foot; I25.10 Atherosclerotic heart disease of native coronary artery without angina pectoris; I25.5 Ischemic cardiomyopathy; Z95.5 Presence of coronary angioplasty implant and graft; Z95.810 Presence of automatic (implantable) cardiac defibrillator
CPT/HCPCS: 36430; 36569; 71045; 73520; 76937; 80048; 80053; 80202; 82565; 82962; 83036; 83735; 84100; 84132; 84520; 85014; 85018; 85025; 85610; 85730; 86850; 86870; 86900; 86901; 86902; 86920; 87040; 87070; 87075; 87081; 87102; 87116; 88304; 88311

== ENCOUNTER 2018-07-27 06:07 | Day surgery (SDC) | payer MEDICARE, OTHER ==
[2018-07-27] MEDS ORDERED: POLYMYXIN B 500000 UNIT INJ (06:44)
[2018-07-27] MEDS ORDERED: BACITRACIN 50000 UNITS INJ (06:47)
[2018-07-27] MEDS ORDERED: ACETAMINOPHEN 500 MG TAB PO (07:00)
[2018-07-27] MEDS ORDERED: DEXAMETHASONE 4 MG/ML 5 ML INJ (11:49)
[2018-07-27] MEDS ORDERED: METOCLOPRAMIDE 10 MG INJ (11:49)
[2018-07-27] MEDS ORDERED: NEOSTIGMINE 10 MG INJ (11:49)
[2018-07-27] MEDS ORDERED: GLYCOPYRROLATE 0.4 MG INJ (11:49)
[2018-07-27] MEDS ORDERED: ONDANSETRON 4 MG INJ (11:49)
[2018-07-27] MEDS ORDERED: MEPERIDINE 100 MG INJ (12:07)
== END 2018-07-27 07:25 ==
LOC: SDS 06:07
DX: E11.621 Type 2 diabetes mellitus with foot ulcer (principal); Z53.9 Procedure and treatment not carried out, unspecified reason; E78.5 Hyperlipidemia, unspecified; I25.2 Old myocardial infarction; I12.9 Hypertensive chronic kidney disease with stage 1 through stage 4 chronic kidney disease, or unspecified chronic kidney disease; N18.9 Chronic kidney disease, unspecified
CPT/HCPCS: 82962

== ENCOUNTER 2018-08-06 13:34 | Day surgery (SDC) | payer MEDICARE, OTHER ==
[2018-08-06] MEDS ORDERED: INSULIN REGULAR, HUMAN 100 UNIT/1 ML 3ML VIAL (15:49)
[2018-08-06] MEDS: INSULIN REGULAR, HUMAN 100 UNIT/1 ML 3ML VIAL SC (15:53)
[2018-08-06] MEDS ORDERED: MIDAZOLAM 1 MG/ML 2 ML INJ (17:03)
[2018-08-06] MEDS ORDERED: FENTAnyl 50 MCG/ML VIAL (17:03)
[2018-08-06] MEDS ORDERED: ETOMIDATE 20 MG INJ (17:40)
[2018-08-06] MEDS ORDERED: CEFAZOLIN 1 GM INJ (17:40)
[2018-08-06] MEDS ORDERED: LIDOCAINE 2% (SDV) 5 ML INJ (17:40)
[2018-08-06] MEDS ORDERED: ONDANSETRON 4 MG INJ (17:40)
[2018-08-06] MEDS ORDERED: hydrALAzine 20 MG INJ (17:41)
[2018-08-06] MEDS: POLYMYXIN/BACITRACIN 1L IRRIG IRR (17:50)
[2018-08-06] MEDS ORDERED: LABETALOL HCL 20MG INJ IV (18:00)
[2018-08-06] MEDS ORDERED: hydrALAzine 20 MG INJ IV (18:00)
[2018-08-06] MEDS ORDERED: ONDANSETRON 4 MG INJ IV ×2 (18:00→18:30)
[2018-08-06] MEDS ORDERED: HYDROmorphONE 1 MG/5 ML IV SYRINGE IV ×2 (18:00)
[2018-08-06] MEDS ORDERED: DIPHENHYDRAMINE 50 MG INJ IV (18:00)
[2018-08-06] MEDS ORDERED: FENTAnyl 50 MCG/ML VIAL IV (18:00)
[2018-08-06] MEDS ORDERED: KETOROLAC 30 MG INJ IV (18:30)
== END 2018-08-06 19:40 ==
LOC: SDS 13:34
DX: E11.621 Type 2 diabetes mellitus with foot ulcer (principal); Z89.432 Acquired absence of left foot
CPT/HCPCS: 15275; 82962; 87070; 87075; 87102; 88304

== ENCOUNTER 2018-10-15 14:39 | Day surgery (SDC) | payer MEDICARE, OTHER ==
[~2018-10-15 14:39] MED LIST changes: +CEFAZOLIN 2 GM/50 ML (PMX) 50 ML IVPB; -LIDOCAINE 1% (MPF) 5 ML VIAL INJ; -PHENYLephrine (100 MCG/ML) 5ML SYG IV; -PROPOFOL 200 MG INJ IV
[2018-10-15] MEDS ORDERED: INSULIN LISPRO 100 UNIT/ML VIAL SC (16:30)
[2018-10-15] MEDS ORDERED: ACCU-CHEK XX (16:30)
[2018-10-15] MEDS: INSULIN ASPART [NOVOLOG] 3 ML PEN SC (16:31)
[2018-10-15] MEDS ORDERED: CEFAZOLIN 1 GM INJ ×2 (17:47→18:41)
[2018-10-15] MEDS ORDERED: PROPOFOL 20 ML (17:47)
[2018-10-15] MEDS ORDERED: LIDOCAINE 100 MG SYRINGE (17:47)
[2018-10-15] MEDS ORDERED: ROCURONIUM 50 MG INJ (17:47)
[2018-10-15] MEDS ORDERED: MINERAL OIL LIGHT 10 ML VIAL (17:47)
[2018-10-15] MEDS ORDERED: FENTAnyl 50 MCG/ML VIAL (17:48)
[2018-10-15] MEDS: SOD CHLORIDE 0.9% 1,000 ML IV (17:49)
[2018-10-15] MEDS ORDERED: DEXAMETHASONE 4 MG/ML 5 ML INJ (17:51)
[2018-10-15] MEDS ORDERED: ONDANSETRON 4 MG INJ (17:51)
[2018-10-15] MEDS ORDERED: TOBRAMYCIN 1.2 GM POWDER (18:10)
[2018-10-15] MEDS ORDERED: VANCOMYCIN 1 GM INJ (18:10)
[2018-10-15] MEDS: LIDOCAINE 1% (MPF) 30 ML INJ (18:24)
[2018-10-15] MEDS ORDERED: EPHEDrine 25 MG/5 ML SYG (18:45)
[2018-10-15] MEDS ORDERED: METOCLOPRAMIDE 10 MG INJ (19:02)
[2018-10-15] MEDS ORDERED: MIDAZOLAM 1 MG/ML 2 ML INJ IV (19:30)
[2018-10-15] MEDS ORDERED: hydrALAzine 20 MG INJ IV (19:30)
[2018-10-15] MEDS ORDERED: DIPHENHYDRAMINE 50 MG INJ IV (19:30)
[2018-10-15] MEDS ORDERED: LABETALOL HCL 20MG INJ IV (19:30)
[2018-10-15] MEDS ORDERED: FENTAnyl 50 MCG/ML VIAL IV ×2 (19:30)
[2018-10-15] MEDS ORDERED: MEPERIDINE 25 MG INJ IV (19:30)
[2018-10-15] MEDS ORDERED: EPHEDrine 25 MG/5 ML SYG IV (19:30)
[2018-10-15] MEDS ORDERED: METOCLOPRAMIDE 10 MG INJ IV (19:30)
[2018-10-15] MEDS ORDERED: OXYCODONE/ACETAMINOPHEN (5/325) TAB PO (19:30)
[2018-10-15] MEDS: OXYCODONE/ACETAMINOPHEN (5/325) TAB PO (19:45)
[2018-10-15] MEDS: FENTAnyl 50 MCG/ML VIAL IV (19:46)
[2018-10-15] MEDS: ONDANSETRON 4 MG INJ IV (19:46)
== END 2018-10-15 20:42 ==
LOC: SDS 14:39
DX: E11.621 Type 2 diabetes mellitus with foot ulcer (principal); I73.9 Peripheral vascular disease, unspecified; Z89.432 Acquired absence of left foot; I10 Essential (primary) hypertension; E78.00 Pure hypercholesterolemia, unspecified
CPT/HCPCS: 15120; 82962